=== PATIENT | male | born 1945 | race Caucasian/White ===

== ENCOUNTER 2016-08-04 13:03 | Day surgery (SDC) | payer MEDICARE ==
[~2016-08-04] VITALS: Ht 182.9 cm; Wt 105.0 kg
--- NOTE | 2016-08-04 08:38 | PCM.HPANE ---
Patient Data Surgeon Admitting Provider: Attending Provider:Fernando Cueva MD Primary Care Physician:Malcolm Rosario MD Other Provider:Cheri Hopperingham Anesthesia Reason for Visit Screening Ht/WT & BMI Body Mass Index Allergies Coded Allergies: Shellfish (Verified Allergy, Unknown, anaphylaxis--all shellfish, 08/04/16) Past Anesthesia History Anesthesia History: Denies:: Abnormal Airway, Anesthesia Reactions, Difficult Intubation Diabetes History Hx Diabetes?: No MRSA MRSA: No Medications Hypertension Medication: No Home Meds Incl Beta Jolene: Yes Date Beta Jolene Taken: Aug 03, 2016 Time Beta Jolene Taken: 18:00 Reported Medications Hydrocodone-Acetaminophen 5-325 mg 1 Each Tablet2 Tablet PO QID PRN For Pain Ref 0 05/26/16 [place]-3 Fatty Acids (Fish Oil)300 Mg [id number] Mg PO 05/26/16 Cholecalciferol (Vitamin D3) (Vitamin D3)5,000 Unit Capsule5,000 Unit PO DAILY 06/05/15 Ascorbic Acid (Vitamin C)1,500 Mg Tablet.er1,000 Mg PO DAILY 06/05/15 Aspirin 81 Mg Pffuiy48 Mg PO DAILY Ref 0 06/05/15 Ropinirole 4 Mg Tablet4 Mg PO TID 30 Days Ref 0 02/06/15 Carbidopa/Levodopa ODT 25-100 mg 1 Each Tab.rapdis2 Tab PO QID 02/06/15 Levothyroxine 137 Mcg [id number] Mcg PO DAILY 30 Days Ref 0 02/06/15 Metoprolol Tartrate 25 Mg Uaeyhv66 Mg PO BID 30 Days Ref 0 02/06/15 Calcium Carbonate (Calcium)600 Mg [id number] Mg PO 01/23/14 Clonazepam 0.5 Mg Tab0.5 Mg PO HS PRN For Anxiety 30 Days Ref 0 01/23/14 Discontinued Reported Medications Sildenafil Citrate (Sildenafil)20 Mg Yuoanw83 Mg PO DAILY PRN for sexual activity 05/26/16 Flaxseed (Flaxseed Oil)1,000 Mg Capsule1,000 Mg PO DAILY 06/05/15 Hyoscyamine SL 0.125 Mg Tab.subl0.125 Mg SL DAILY PRN For Congestion 02/06/15 History History of ENT Problems?: No Hx of Heart Problems?: No Cardiovascular History: Positive for:: Hypertension Denies:: Congestive Heart Failure Hx of Respiratory Problem?: Yes Respiratory History: Positive for:: Pneumonia (HX OF BRONCHITIS/PNEUMONIA W/ LUNG SCARRING ON XRAY) Denies:: Tuberculosis Hx Neurologic Problems?: Yes Neurological History: Positive for:: Parkinson's Disease (RECENTLY DIAGNOSED) Hx of GI Problems?: Yes Hx of Problems?: No Male Hx: Denies:: Prostate Problems Scrotal Mass Testicular Surgery Skin History: Denies:: History Skin Disorders? Pressure Ulcers Hx Musculoskeletal Problems?: Yes Musculoskeletal History: Positive for:: Joint Replacement (LT TKA) Musculoskeletal Trauma (FX ANKLE, DISLOCATED SHOULDER) Hx of Psycho/Social Problems?: No Hx Surgeries?: Yes (LT TKA,KNEE SCOPES X2,MCL RPR,ANKLE RPR,COLON SURGERY) Hx Any Other Health Problems?: Yes Other History: Positive for:: Thyroid Disease (HX OF GRAVE'S DISEASE RX W/ RADIOACTIVE IODINE) Denies:: Cancer Endocrine Disease Hospitalization History Blood Transfusions: Denies:: Blood Transfusions Hx Diabetes: No Hx Alcohol Use: YesHx Substance Use: NoHave You Smoked inLast 12 mo: No ( QUIT 20 YRS AGO) Stop/Bang Treated for Sleep Apnea?: No Do You Have a CPAP Machine?: No Risk Assessment Category Category 1A: Patient has history of documented sleep apnea, and HAS NOT received any narcotic, sedative or anesthesia administration during this stay. Category 1B: Patient has history of documented sleep apnea, and HAS received any narcotic , sedative or anesthesia administration during this stay Category 2: Patient has SUSPECTED Obstructive Sleep Apnea, and HAS received any narcotic , sedative or anesthesia administration during this stay. Category 3: Patient has SUSPECTED Obstructive Sleep Apnea and HAS NOT received narcotic, sedative or anesthesia administration during this stay. Category 4: Outpatient in Procedural Areas with known sleep apnea or who screen positive for High Risk via the STOP/BANG questionnaire. Exam Exam General Appearance: Alert, Oriented X3, Cooperative, No Acute Distress HEENT/AIRWAY: MP 2 Lungs: Clear to Auscultation, Normal Air Movement Heart: Exam Unremarkable, Regular Rate/Rhythm, No Murmurs/Rubs/Gallops Plan Impression Patient chart reviewed, patient interviewed and anesthestic plan with risks, benefits, and alternatives discussed, and informed consent obtained. ASA Physical Status: ASA2 Mod Systemic Disease Anesthetic Plan: MAC Bene/Risks/Altern/Consents: Yes HP Complete Prior to Induction: Yes Chris Bruce MD Aug 04, 2016 08:38
[~2016-08-04 13:03] MED LIST: ASCO1500 PO; ASPI-973 PO; CALC600T12 PO; CARB1TAB40 PO; CHOL5000 PO; FLAX100010 PO; HYDR-4003 PO; HYOS0.1218 SL; KLO5T PO; LEVO137T2 PO; Lactated Ringer's 1,000 ML IV ONE; METO25TA6 PO; OMEG300C3 PO; ROPI4TAB4 PO; SILD20TA14 PO
[2016-08-04] MEDS ORDERED: Ketamine 10 mg/mL 20 mL Inj ONE (13:04)
[2016-08-04 14:13] VITALS: BP 174/105; PULSE 82; RESP 14; O2SAT 97
[2016-08-04] MEDS ORDERED: Lactated Ringer's 1,000 ML IV SCH (14:24)
[2016-08-04] MEDS ORDERED: Ondansetron 2 mg/mL 2 mL Inj IVPUSH PRN (14:25)
[2016-08-04] MEDS ORDERED: MetoCLOpramide 5 mg/mL 2 mL Inj IVPUSH PRN (14:25)
[2016-08-04 15:00] VITALS: BP 142/79; PULSE 80; RESP 16; O2SAT 95
[2016-08-04 15:10] VITALS: BP 153/94; PULSE 84; RESP 16; O2SAT 97
--- NOTE | 2016-08-04 16:25 | ENDO ---
[address] [address] ENDOSCOPY PROCEDURE PATIENT: GABE CHENEY : 1945 MR#: [id number] ADMIT: 08/04/2016 JOB ID: [id number] PROCEDURE: Colonoscopy. INDICATIONS: Screening. Please see Dr. Bruce's anesthesia report for details regarding ASA classification, Mallampati score and medications. INSTRUMENT USED: TCF Zohra 180 AL. PREPARATION QUALITY: Poor. PROCEDURAL DETAILS: After informed consent was obtained, the patient was brought into the GI suite where he was placed on oxygen via nasal cannula and monitored with continuous pulse oximeter, telemetry, and blood pressure monitoring. A time-out was performed. Then, he was placed in the left lateral decubitus position and medications were administered for sedation. Digital rectal exam with palpation of the prostate was performed and was unremarkable. The colonoscope was then inserted into the rectum and advanced under direct visualization to the cecum which was identified by the presence of the ileocecal valve. I was unable to visualize the appendiceal orifice secondary to poor prep. The colonoscope was then withdrawn back from the cecum into the rectum and the mucosa was examined. As the prep was poor, there was limited evaluation of the colon mucosa. Additionally, the sigmoid colon was quite tortuous and redundant. As we initially attempted to advance the colonoscope from the rectum, we did by accident perform retroflexion in the sigmoid colon which to me indicated an enlarged and redundant sigmoid colon. IMPRESSION: 1. Redundant sigmoid colon. 2. Poor prep. RECOMMENDATIONS: Consider repeat colon cancer screening with CT colonography versus repeating colonoscopy with two-day colon prep. COMPLICATIONS: None. ESTIMATED BLOOD LOSS: Zero. MTDD
--- NOTE | 2016-08-08 07:32 | PCM.ANEP2 ---
Post Anesthesia Evaluation ASA/CMS Post Anesthesia VS in Patient's Normal Range?: Yes Resp Stable; Airway Patent?: Yes CV Function & Hydration Stable: Yes Mental Status Recovered?: Yes Pain control Satisfactory?: Yes N/V Control Satisfactory?: Yes Chris Bruce MD Aug 08, 2016 07:32
--- NOTE | 2016-08-08 07:32 | PCM.ANEP1 ---
Post Anesthesia Phase 1 PACU Phase 1 Assessment Anesthetic Administered: MAC Level of Alertness: Awake, talking GLORIA's with Equal Strength: Yes Pain: No Nausea or Vomiting: No Oxygen Delivery: Nasal Cannula Lungs: Clear to Auscultation, Normal Air Movement Dermatome Level: Full Sensation Chris Bruce MD Aug 08, 2016 07:32
[2016-08-18] MEDS ORDERED: AMN100C PO (11:54)
[2016-08-18] MEDS ORDERED: ATOR20TA PO (12:08)
[2016-08-18] MEDS ORDERED: KLO5T PO (12:33)
[2016-08-18] MEDS ORDERED: CARB1TAB14 PO (12:33)
[2016-08-18] MEDS ORDERED: SILD20TA14 PO (12:33)
[2016-08-18] MEDS ORDERED: FLAX100038 PO (12:33)
[2016-08-18] MEDS ORDERED: CALC-975 PO (12:33)
[2016-08-18] MEDS ORDERED: HYOS0.1216 PO (12:35)
[2016-08-23] MEDS ORDERED: HYDR-4003 PO (15:38)
== END 2016-08-04 23:59 | disposition home or self-care (01) ==
LOC: END 13:03
PROVIDERS: ATTEND Internal Medicine Gastroenterology
DX: Z12.11 Encounter for screening for malignant neoplasm of colon (principal); Q43.8 Other specified congenital malformations of intestine; G20 Parkinson's disease; I10 Essential (primary) hypertension; G47.30 Sleep apnea, unspecified; Z79.82 Long term (current) use of aspirin; Z96.89 Presence of other specified functional implants
CPT/HCPCS: G0121; J7120

== ENCOUNTER 2016-09-27 17:33 | Observation (INO) | payer MEDICARE ==
[~2016-09-27] VITALS: Ht 182.9 cm; Wt 102.2 kg
[2016-09-27] VITALS (7 sets, daily range): BP systolic 93–174; BP diastolic 61–94; PULSE 83–119; RESP 15–20; O2SAT 94–100
[~2016-09-27 17:33] MED LIST changes: -ASCO1500 PO; +ATOR20TA PO; -CALC600T12 PO; +CARB1TAB14 PO; -CARB1TAB40 PO; -FLAX100010 PO; -HYOS0.1218 SL; -Lactated Ringer's 1,000 ML IV ONE; -OMEG300C3 PO
--- NOTE | 2016-09-27 18:02 | ED.REPORT ---
HPI-General Illness Date of Service Sep 27, 2016 ED Provider: Dr. Keith Reynolds M.D. A 71 year old male with a medical history including hypertension, hypothyroid, sleep apnea, and Parkinson's disease s/p deep brain neurostimulator placement presents to the ED via EMS after a ground level fall at approximately 0900 this morning. The patient was too weak to get up and was found by his on the ground eight hours after his fall. He denies hitting his head or obtaining other injuries from the fall. The patient's family reports the patient has been getting progressively weaker and more confused over the past three weeks. The patient also reports visual and auditory hallucinations. He denies nausea, vomiting, fever, headache, dysuria, reduced urination, abdominal pain, chest pain, or other symptoms. The patient admits to using oral cannabinoid products for the first time recently. Nursing Notes Stated Complaint: WEAK, GROUND LEVEL FALL Chief Complaint: General Complaint Nursing Notes Reviewed: Yes Allergies: Coded Allergies: Shellfish (Verified Allergy, Unknown, anaphylaxis--all shellfish, 09/27/16) Scheduled Aspirin (Aspirin) 81 Mg Tablet 81 MG PO DAILY Atorvastatin (Lipitor) 20 Mg Tablet 20 MG PO DAILY Carbidopa/Levodopa 25-100 mg (Carbidopa/Levodopa 25-100 mg) 1 Each Tablet 1 TABLET PO QID Cholecalciferol (Vitamin D3) (Vitamin D3) 5,000 Unit Capsule 5,000 UNIT PO DAILY Clonazepam (Clonazepam) 0.5 Mg Tablet 0.5 MG PO HS Levothyroxine (Levothyroxine) 137 Mcg Tablet 137 MCG PO QAM Metoprolol Tartrate (Metoprolol Tartrate) 25 Mg Tablet 25 MG PO BID Ropinirole (Ropinirole) 1 Mg Tablet 1 MG PO TID Sildenafil Citrate (Sildenafil) 20 Mg Tablet 20 MG PO DAILY Scheduled PRN Hydrocodone-Acetaminophen 5-325 mg (Hydrocodone-Acetaminophen 5-325 mg) 1 Each Tablet 1 TABLET PO Q6H PRN PRN For Pain General Time Seen by MD: 18:01 Chief Complaint Weakness, Other (Ground Level Fall) Hx Obtained From: Patient Arrived By: Ambulance Sudden in Onset?: Yes Onset Occurred: 9 - 12 hours ago Symptom Duration: 5 - 8 hours Caused by: Fall on ground Context: Occurred at: Home injury Severity: Current: No pain currently Severity: Maximum: No pain Associated with: Denies: Fever, Headache, Nausea, Vomiting Pertinent Negative: Relieved by nothing Recent Healthcare: No recent doctor visit Past Medical History Past Medical History Parkinson's disease Hypertension Sleep apnea Hypothyroid Ataxia Arthritis Hx Ankle fracture Hx Dislocated shoulder Past Surgical History Deep brain neuro-stimulator placement for Parkinson's Interlaminar SHAYNE MCL repair Left TKA Smoking History Former Smoker Social History Other Social History: Good social support, Ambulatory Status Independent Review of Systems Full Review of Systems Constitutional: Denies: Fever Respiratory: Denies: Non-productive cough, Shortness of breath Cardiovascular: Denies: Chest pain GI: Denies: Abdominal pain, Nausea Male: Denies Dysuria, Denies Urination decreased Neurologic: Reports: Confusion, Weakness, Denies: Headache Psychiatric: Reports: Hallucinations, auditory, Hallucinations, visual Complete sys rev & neg: except as marked. Physical Exam Vital Signs Vital Signs Date Time Temp Pulse Resp B/P Pulse Ox O2 Delivery O2 Flow Rate FiO2 09/27/16 21:37 89 16 145/77 98 Room Air 09/27/16 21:01 102 15 106/70 98 09/27/16 20:17 119 20 93/61 97 Room Air 09/27/16 17:46 36.4 118 18 174/94 100 Room Air Initial VS: Reviewed (PAr) ENT: Conjunctiva normal, No scleral icterus Neck: Supple, Full range of motion Respiratory: Breath sounds normal, Clear to auscultation, No respiratory distress Skin: Warm, Dry, No cyanosis Psychiatric: Mood/affect normal, Behavior normal, Normal thought content General/Constitutional: Awake, Alert Distress / Hydration: Positive: Dehydration mild Parkinsonian Head / Eyes: Atraumatic, Normocephalic, EOMI 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 Cardiovascular: Regular rhythm, Heart sounds NL, No gallop, No murmurs Heart Rate / Rhythm: Positive: Tachycardia Abdomen: Soft, Non-tender Obese Neurologic: Oriented X3, Speech NL Focal Weakness: Negative: Lower extremity bilat, Upper extremity bilat Parkinsonian Interpretation & Diagnostics Lab Results Interpretation Result Diagram: 09/27/16 1820 09/27/16 1855 Test 09/27/16 18:20 09/27/16 18:55 White Blood Count 12.5th/mm3 (3.8-10.1) Red Blood Count 3.98mil/mm3 (4.40-5.80) Hemoglobin 12.5g/dL (13.8-17.2) Hematocrit 36.9% (41.0-50.0) Mean Corpuscular Volume 92.7fL (81-100) Mean Corpuscular Hemoglobin 31.4pg (27.0-35.0) Mean Corpuscular Hemoglobin Concent 33.9% (32.0-37.0) Red Cell Distribution Width 13.8% (12.3-15.4) Platelet Count 170bil/L (150-400) Neutrophils (%) (Auto) 80.2% (40-74) Lymphocytes (%) (Auto) 10.1% (14-46) Monocytes (%) (Auto) 9.3% (4-12) Eosinophils (%) (Auto) 0.1% (0-5) Basophils (%) (Auto) 0.1% (0-3) Prothrombin Time 11.4sec (8.1-12.5) Prothromb Time International Ratio 1.06ratio Activated Partial Thromboplast Time 23.1sec (22.8-33.0) Lactic Acid Level 2.1mmol/L (0.4-2.0) Sodium Level 137mEq/L (134-144) Potassium Level 4.2mEq/L (3.5-5.2) Chloride Level 99mEq/L (97-108) Carbon Dioxide Level 22mmol/L (18-29) Blood Urea Nitrogen 16mg/dL (8-27) Creatinine 0.73mg/dL (0.76-1.27) Estimat Glomerular Filtration Rate 113mL/min (>59) Glucose Level 126mg/dL (60-99) Calcium Level 9.5mg/dL (8.5-10.1) Magnesium Level 1.8mg/dL (1.6-2.6) Iron Level 61ug/dL (35-150) Total Iron Binding Capacity 306ug/dL (250-450) Percent Iron Saturation 20%sat (15-50) Unsaturated Iron Binding 244.5ug/dL Ferritin 504ng/mL (30-400) Total Bilirubin 1.1mg/dL (0.0-1.2) Aspartate Amino Transf (AST/SGOT) 34U/L (0-50) Alanine Aminotransferase (ALT/SGPT) 15U/L (0-44) Alkaline Phosphatase 74U/L (25-160) Total Creatine Kinase 725U/L (21-232) Creatine Kinase MB 19.1ng/mL (0.0-10.4) Creatine Kinase MB % 2.6% (0.0-5.0) Troponin T < 0.010ug/L (0.0-0.011) Pro-B-Type Natriuretic Peptide 212.9pg/mL (0-376) Total Protein 7.4g/dL (6.4-8.4) Albumin 4.6g/dL (3.4-5.0) Hold [place] Top Tube Received (Received) ECG Interpretation ECG Interpretation: Junctional tachycardia rate 120 LBBB Time: 19:25 Interpreted by: ED physician X-Ray Chest Interpretation Chest Xray Interpretation: IMPRESSION: No acute cardiopulmonary findings. Dictated by: Joycelyn Hay M.D. on 09/27/2016 at 19:08 View: Portable, 1 view Interpretation / Wet Read by: Interpret - Radiologist CT Head Interpretation IMPRESSION: 1. No acute intracranial findings. 2. Extensive findings likely associated with chronic microvascular ischemic changes. Dictated by: Joycelyn Hay M.D. on 09/27/2016 at 18:42 Study: Head CT no contrast Interpretation / Wet Read by: Interpret - ED physician Re-Eval/Medical Decision Med Decision/Clinical Course 71-year-old with progressive weakness and a background of severe parkinsonism, presents after a low level fall and being unable to get up off the floor for more than eight hours. He has mild rhabdomyolysis apparent. No other injury apparent. He is a persistent junctional tachycardia tonight. Complicating his weakness has been recent use of cannabinoids taken medicinally. His weakness really predates that, but that may have complicated his situation today. He is admitted now for IV hydration and diuresis for his rhabdo. PT evaluation for his gait instability. Time of Eval: 20:38 Patient Status: Condition improved Re-Evaluation/Progress Note: Discussed with patient and his family x-ray, CT, and lab results, diagnosis, and plan for admit. Patient agrees with plan for care and all questions were addressed. Consultation : Referral / Consult Name: Inge Mittal DO Consulted With: Hospitalist Call Returned at: 21:11 Change Room Attendant: Agrees with eval, Agrees with plan, Accepts admit Counseled Regarding: Diagnosis, Lab results, Need for admission Discharge & Departure Primary Impression: Fall from ground level Additional Impressions: Rhabdomyolysis Rhabdomyolysis type: non-traumatic Qualified Code: M62.82 - Rhabdomyolysis Junctional tachycardia Generalized weakness Parkinson's disease Disposition: ADMITTED TO HOSPITAL Discharge Condition All VS Reviewed: Yes Condition: Improved Referrals: Malcolm Rosario MD (PCP) Scribe Attestation Portions of this note were transcribed by Betty Carlton. I, Dr. Reynolds, personally performed the history, physical exam, and medical decision-making; I reviewed and confirmed the accuracy of the information in the transcribed note. Signed by: Astrid Danielle, 09/28/16, 00:15 copies to: Malcolm Rosario MD Risk Factors NIH Stroke Scale Level of Consciousness: Alert and responsive (0) Open/Close Eyes/Hand Clinical Dietitian: Performs both tasks (0) Horizontal EO Movements: None (0) Facial Palsy: Normal symmetry (0) Right Arm Motor Drift (10s): No drift 10 sec (0) Left Arm Motor Drift (10s): No drift 10 sec (0) Right Leg Motor Drift (5s): No drift 5 sec (0) Left Leg Motor Drift (5s): No drift 5 sec (0) Language Aphasia: No aphasia, normal (0) Dysarthria: No dysarthria, normal (0) NIHSS Score: 0 Time NIHSS Performed: 18:10 Date NIHSS Performed: Sep 27, 2016 Keith Reynolds MD Sep 27, 2016 18:02 BETTY CARLTON Sep 27, 2016 18:21
[2016-09-27 18:37] LABS: BASOPHILS % (AUTO) 0.1 % (0-3); EOSINOPHILS % (AUTO) 0.1 % (0-5); MONOCYTES % (AUTO) 9.3 % (4-12); Mean Corpuscular Hemoglobin 31.4 pg (27.0-35.0); Mean Corpuscular Volume 92.7 fL (81-100); NEUTROPHILS % (AUTO) 80.2 % (40-74); Platelet Count 170 bil/L (150-400)
--- NOTE | 2016-09-27 18:46 | DRSVH ---
PROCEDURE: CT BRAIN WITHOUT CONTRAST ([id number]) INDICATIONS: glf TECHNIQUE: Noncontrast 4.5 mm thick angled axial sections acquired from the foramen magnum to the vertex, with c oronal reformats. COMPARISON: None. FINDINGS: Image quality: Excellent. CSF spaces: Basal cisterns are patent. No extra-axial fluid collections. The ventricles are symmet sarah in size and shape. Brain: Left-sided basal ganglia neurostimulator is present with the tip in the left thalamic region. No intracranial bleeds or masses. There is cerebral marked volume loss for age, with resultant ventr icular and sulcal prominence. There are periventricular and deep white matter chronic small vessel i schemic changes. There is intracranial internal carotid artery atherosclerosis. Skull and face: Calvarium and visualized facial bones appear intact, without suspicious lesions. Sinuses: Visualized sinuses and mastoids are clear. IMPRESSION: 1. No acute intracranial findings. 2. Extensive findings likely associated with chronic microvascular ischemic changes. Dictated by: Joycelyn Hay M.D. on 09/27/2016 at 18:42 Approved by: Joycelyn Hay M.D. on 09/27/2016 at 18:44
[2016-09-27 19:03] LABS: INR 1.06 ratio
--- NOTE | 2016-09-27 19:12 | DRSVH ---
PROCEDURE: X-RAY CHEST ONE VIEW, PORTABLE ([id number]) INDICATIONS: glf, weakness TECHNIQUE: One view of the chest was acquired. COMPARISON: [facility], , CHEST 1VW (PORTABLE), 01/23/2014, 17:38. FINDINGS: Surgical changes and devices: Nerve stimulator is projected over the left pulmonary apex. Mildly enla rged. Lungs and pleura: No pleural effusions or pneumothorax. Lungs are clear. Mediastinum: Mediastinal contours appear normal. Heart size is normal. Bones and chest wall: No suspicious bony lesions. Overlying soft tissues appear unremarkable. IMPRESSION: No acute cardiopulmonary findings. Dictated by: Joycelyn Hay M.D. on 09/27/2016 at 19:08 Approved by: Joycelyn Hay M.D. on 09/27/2016 at 19:10
[2016-09-27 19:37] LABS: Creatine Kinase 725 U/L (21-232); Magnesium 1.8 mg/dL (1.6-2.6)
[2016-09-27 19:51] LABS: TROPONIN T < 0.010 ug/L (0.0-0.011)
[2016-09-27] MEDS ORDERED: 0.9% Sodium Chloride 1,000 ML IV ONE (20:10)
[2016-09-27] MEDS ORDERED: Alum-Mag Hydrox-Simeth 30 mL Suspension PO PRN (21:15)
[2016-09-27] MEDS ORDERED: Polyethylene Glycol (PEG) 17 Gm Powder PO PRN (21:15)
[2016-09-27] MEDS ORDERED: Ondansetron 2 mg/mL 2 mL Inj IVPUSH PRN (21:15)
[2016-09-27] MEDS ORDERED: ROPI1TAB3 PO (21:44)
--- NOTE | 2016-09-27 23:00 | NUR ---
admit note pt to floor needing slider board to move to bed. pt denies any "real pain". and daughter in room, tele placed and shows SR, pts right knee with an abrasion from fall at home and swollen, x-ray ordered, NS at 100cc/hr, pt tolerating some ice cream and water, appears more awake according to the family, pt with intermittent hallucinations ([employer]), pt on RA, med rec completed by , flu vaccine in fall. orientated pt to call light, room and bed. allergy band in place.
--- NOTE | 2016-09-27 23:37 | PCM.HPMED ---
Subjective Date of Service Sep 27, 2016 Primary Provider: Admitting Physician: Primary Care Physician: Malcolm Rosario MD Attending Physician: Chief Complaint: Ground-level fall, down for extended period of time History of Present Illness: Dr. Malcolm Rosario is the PCP Christoph Winston is a 71 year old male with a medical history including Parkinson's s/p deep brain neurostimulator placement, hypertension, hypothyroid and sleep apnea who presents to the ED via EMS after a ground level fall around 0900 this morning. The patient was too weak to get up and was found by his on the ground at 5 PM (about eight hours after his reported time of fall) and reportedly naked (patient reports he had just come out of the shower). Please note, reports that he was last seen normal at 8 AM. He denies injuries from the fall, but notes that he may have hit his knee on the carpet. The patient's family reports the patient has been getting progressively weaker over the last many months, but worse over the last month (they report that his ropinirole dose was recently decreased to 1 mg daily, and also that his sildenafil medication was either added/dose change). He had a previous fall just recently on 09/08/16 at home, but no significant workup as noted for that, and the situation surrounding that fall is also somewhat in question is it was not witnessed. Otherwise, his denies any recent falls, but does note a remote fall sometime ago of similar circumstances. Otherwise no changes to his medications. They report that he has not had much to eat today as he was on the ground for most of the day. They otherwise deny any issues with appetite and by mouth intake. He has not taken any of his medications today except for his carbidopa levodopa. The patient also reports visual and auditory hallucinations (some of the outpatient notes mention decreasing his dose of clonazepam), but this is been going on for some time now. He reports mild somewhat daily headache for an undisclosed duration of time (at this point he had taken one of his evening medications administered by his in the room, and was becoming less coherent ), and both patient and family believe that this is related to his neck tightness associated with Parkinson's. He reports increased urine output, but denies burning or abdominal pain. Family reports that he has been having more trouble swallowing large pills, but denies any coughing or choking with food or water. He reports feeling weak all over at this time. He reports testicular pain for the last "months" that has not changed. He denies nausea, vomiting, fever/chills, abdominal pain, constipation, diarrhea, chest pain, shortness of breath. In the ER, CT head was negative as was the chest x-ray. In EKG showed a junctional tachycardia (this has resolved (monitor now shows sinus rhythm with rate in the 80s)). Labs indicated a mildly elevated CK for which she received a liter of fluid. Patient is admitted under inpatient status with expected length of stay greater than 2 midnights due to severity of presenting symptoms, risk of adverse event, and complexity of treatment plan. Review of Systems: Comprehensive review of systems conducted and was negative except for the pertinent positives listed in history of present illness above. Allergies Coded Allergies: Shellfish (Verified Allergy, Unknown, anaphylaxis--all shellfish, 09/27/16) Home Medications From [employer]. incomplete: Christoph Winston. [id number] 1945 09/15/2016 10:50 AM 08/03 Aspir-81 81 mg tablet,delayed release take 1 tablet by oral route every day atorvastatin 20 mg tablet take 1 tablet by oral route every day Calcium 600 + D(3) 600 mg calcium-200 unit capsule carbidopa ER 25 mg-levodopa 100 mg tablet,extended release take 2 tablets 4 times a day. clonazepam 0.5 mg tablet take 1 tablet (0.5MG) by oral route every bedtime hydrocodone 5 mg-acetaminophen 325 mg tablet take 1 tablet by oral route every 6 hours as needed for pain levothyroxine 137 mcg tablet take 1 tablet by oral route every day metoprolol tartrate 25 mg tablet take 1 tablet by oral route 2 times every day ropinirole 4 mg tablet TAKE ONE half TABLET BY MOUTH 3 TIMES DAILY Vitamin C ER 1,000 mg tablet,extended release Vitamin D3 5,000 unit tablet 1 tablet by mouth daily PMH Multivessel CAD History of SVT on medical therapy Hypertension Hypothyroidism (history of Graves' disease) Parkinson's status post neurostimulator-history of falls (outpatient record indicates a fall on 09/08/16) * Associated dizziness, falls, hallucinations, postural hypotension, gait abnormality, unsteadiness Sleep apnea History of sigmoid volvulus Ventral hernia Arthritis Lumbar spine stenosis without neurogenic claudication (L4-5 grade 1 spondylolisthesis) Hx Ankle fracture Hx Dislocated shoulder left Past Surgical History Deep brain neuro-stimulator placement for Parkinson's 2015 Interlaminar SHAYNE MCL repair Left TKA Sigmoid volvulus resection in 2010 Left shoulder arthroscopy Family History Father in a fire. Mother had multiple cardiac surgeries (CABG and valve surgeries) Maternal uncle had significant heart disease A grandfather had throat cancer (no history of tobacco use) A brother has throat cancer (tobacco history) Social History Hx Alcohol Use: Yes (daily use. Family reports that he will have 2 alcoholic beverages (usually in the form of hard lemonade) daily) Hx Substance Use: No Hx Tobacco Use: Yes (reports quitting in 1976 after which he uses chewing tobacco for a time, but reports quitting in the mid ) Smoking Status: Former Smoker Living Arrangement: with Family (lives with his locally) Additional Information , father of 3 children. Live for a time in [place], but otherwise lifelong [place]. Exam Vital Signs Vital Sign - Last Date Time Temp Pulse Resp B/P Pulse Ox O2 Delivery O2 Flow Rate FiO2 09/27/16 21:01 102 15 106/70 98 09/27/16 20:17 Room Air 09/27/16 17:46 36.4 Exam General: Obese gentleman, somnolent and opens eyes easily to verbal, somewhat confused, but Oriented X3, Cooperative, No Acute Distress. Lying in the ER gurney. Head: Remote postsurgical changes of the left parietal portion of the scalp and skull consistent with his history of deep brain stimulator placement, atraumatic. External ears normal. Eyes: PERRLA, EOMI. Anicteric sclerae. Conjunctiva are not injected Mouth: Mouth Normal, Mucous Membranes Moist/Bowdens Neck: Neck supple with full range of motion. No Thyromegaly. Chest & Lungs: Clear to auscultation bilaterally with no crackles, wheezes, or rhonchi. Normal respiratory effort without use of accessory muscles Cardiovascular: Regular Rate/Rhythm (sinus on the monitor), Normal S1, Normal S2, No Murmurs/Rubs/Gallops. Radial and posterior tibial pulses are 2+ bilaterally. Abdomen: Minimally tender in RUQ and LUQ to deep palpation, Non-distended, No masses, Normoactive bowel tones, Soft. There is a large, jagged remotes postsurgical scar of the anterior inferior portion of the abdomen consistent with his history of volvulus resection. There is a large easily reducible, nontender hernia of the anterior abdomen on the R. : Normal penis (not circumcised). Testicles are small and tender (patient reports they are not more tender than usual during the last "months") R>L without tenderness of the vas def b/l. No overlying erythema. No dir/indir indication of inguinal hernia (nontender eval). Cremaster reflex appears intact (patient is supine, so difficult to assess) b/l. Musculoskeletal: Tender to palpation over the left anterior knee and along the joint line without erythema or visible swelling. Quite tender to palpation over the right anterior knee and along the joint line with some mild medial erythema, and visible appearance larger than the left without appreciable effusion. Range of motion in this knee (the right) is reduced secondary to pain. Extremities: No cyanosis/clubbing/edema bilat Neurological: Grossly Neurologically Intact (but is somewhat confused making statements such as regards pajamas, and weakness in his chest, but family reports that they just gave him his nighttime dose of medication which usually makes him quite sleepy), Cranial Nerves 2-12 Intact, Normal Speech (no slurring appreciated), he will to lift bilateral legs off the gurney, but reports pain in his right knee when he lifts his right leg., Gait gait was not assessed at this time Psych: Normal mood and affect. Thought process and content are somewhat destroyed today and tangential. Please note that the patient was not reporting any visual or auditory hallucinations at this time. Lab and Diagnostics Labs Laboratory Tests 72 Hours Test 09/27/16 18:20 09/27/16 18:55 White Blood Count 12.5th/mm3 (3.8-10.1) Red Blood Count 3.98mil/mm3 (4.40-5.80) Hemoglobin 12.5g/dL (13.8-17.2) Hematocrit 36.9% (41.0-50.0) Mean Corpuscular Volume 92.7fL (81-100) Mean Corpuscular Hemoglobin 31.4pg (27.0-35.0) Mean Corpuscular Hemoglobin Concent 33.9% (32.0-37.0) Red Cell Distribution Width 13.8% (12.3-15.4) Platelet Count 170bil/L (150-400) Neutrophils (%) (Auto) 80.2% (40-74) Lymphocytes (%) (Auto) 10.1% (14-46) Monocytes (%) (Auto) 9.3% (4-12) Eosinophils (%) (Auto) 0.1% (0-5) Basophils (%) (Auto) 0.1% (0-3) Prothrombin Time 11.4sec (8.1-12.5) Prothromb Time International Ratio 1.06ratio Activated Partial Thromboplast Time 23.1sec (22.8-33.0) Hold [place] Top Tube Received (Received) Received (Received) Sodium Level 137mEq/L (134-144) Potassium Level 4.2mEq/L (3.5-5.2) Chloride Level 99mEq/L (97-108) Carbon Dioxide Level 22mmol/L (18-29) Blood Urea Nitrogen 16mg/dL (8-27) Creatinine 0.73mg/dL (0.76-1.27) Estimat Glomerular Filtration Rate 113mL/min (>59) Glucose Level 126mg/dL (60-99) Calcium Level 9.5mg/dL (8.5-10.1) Magnesium Level 1.8mg/dL (1.6-2.6) Total Bilirubin 1.1mg/dL (0.0-1.2) Aspartate Amino Transf (AST/SGOT) 34U/L (0-50) Alanine Aminotransferase (ALT/SGPT) 15U/L (0-44) Alkaline Phosphatase 74U/L (25-160) Total Creatine Kinase 725U/L (21-232) Creatine Kinase MB 19.1ng/mL (0.0-10.4) Creatine Kinase MB % 2.6% (0.0-5.0) Troponin T < 0.010ug/L (0.0-0.011) Pro-B-Type Natriuretic Peptide 212.9pg/mL (0-376) Total Protein 7.4g/dL (6.4-8.4) Albumin 4.6g/dL (3.4-5.0) Result Diagram: 09/27/16181909/27/16 1593 X-Rays, CTs and MRIs Date of Service: 09/27/161812 PROCEDURE: X-RAY CHEST ONE VIEW, PORTABLE ([id number]) IMPRESSION: No acute cardiopulmonary findings. Dictated by: Joycelyn Hay M.D. on 09/27/2016 at 19:08 Date of Service: 09/27/161812 PROCEDURE: CT BRAIN WITHOUT CONTRAST ([id number]) IMPRESSION: 1. No acute intracranial findings. 2. Extensive findings likely associated with chronic microvascular ischemic changes. Dictated by: Joycelyn Hay M.D. on 09/27/2016 at 18:42 12-lead ECG EKG seems demonstrated a junctional tachycardia with a rate of 120, what appears to be a borderline left bundle branch block, but otherwise normal intervals, normal axis, and what appears to be <1mm ST depression in V2 through V6, 1 and 2. However no other ST-T wave changes suggestive of acute ischemia. Please note comparison with outpatient ECG on 02/03/15 demonstrates sinus rhythm Cardiac Echo Impressions Most recent echo was 2013 with an EF of 55-60% Assessment & Plan Christoph Winston is a 71 year old male with a medical history including Parkinson's s/p deep brain neurostimulator placement, hypertension, hypothyroid and sleep apnea who presents to the ED via EMS after a ground level fall around 0900 this morning. # Ground-level fall at home, acute with report of chronic progressive weakness. Present on admission -Likely multifactorial given the patient's underlying Parkinson's (potential progression), lumbar spine stenosis, medication side effects, with potential contributing factors from postural hypotension perhaps exacerbated by just coming out of the shower -Physical therapy assessment -We will continue his Parkinson's medications with consideration for holding specific medication such as clonazepam -Activity: Up with assist -Heart healthy diet -We will check a B12 and folate, and also an A1c (patient's daughter reports that she has a poor diet) #Elevated CK with concern for rhabdomyolysis given his extended time on the floor, acute. Present on admission -Rather mild elevation of CK given the amount of time he was on the floor -We await the UA -IV fluid administration -Telemetry monitoring for arrhythmias -Continue to monitor labs # Superficial findings consistent with trauma to the right knee, acute. Present on admission -Concerning for contusion, patellar fracture, perhaps some possibility of cellulitis (given the small bump in WBC) -XR of right knee to assess for bony abnormality -Conservative pain management given are goal of avoiding further confusion and/ or iatrogenic gait instability -Continue to monitor labs for further indicators of infection -Consideration for getting ortho involved # Junctional tachycardia, acute in the ER, now resolved. Present at time of presentation, but not admission -Potentially related to mild rhabdomyolysis -Telemetry monitoring. -Continue to monitor labs for any electrolyte abnormalities # Leukocytosis with 80% neutrophils, acute. Present on admission -Further monitoring and management as above # Anemia, normocytic, and of unknown chronicity. Present on admission -Potentially related to his initial fall and being found down, contusion to the right knee, vitamin deficiency -Continue to monitor lab -consideration for iron panel, B12 and folate # Hyperglycemia (in setting of report the patient has not had anything to eat all day), unknown chronicity. Present on admission -We will check an A1c to assess for potential diabetes #right groin pain, acute on chronic -pt concerned about worsening "hernia pain: -exam as above -if pain persists would consider imaging / hip imaging (s/p GLF) Chronic conditions: Multivessel CAD-continue aspirin, atorvastatin, metoprolol History of SVT on medical therapy-continue metoprolol Hypertension-continue metoprolol Hypothyroidism (history of Graves' disease)-continue levothyroxine Parkinson's status post neurostimulator-history of falls-continue carbidopa- levodopa, ropinirole, but will hold sildenafil for now. Will not administer his that time clonazepam tonight, but consider continuing. Sleep apnea Arthritis-we will make Tylenol available Testicular pain-(see exam above, and negative UA) consider testicular US in the morning or as outpatient Large ventral hernia-easily reducible without increased tenderness. Await lactic acid, but no clear indication for further diagnostic evaluation at this time. PRN MEDICATIONS - Acetaminophen as needed for mild pain/fever/headache - Bowel regimen as needed - Antiemetic as needed Patient is admitted under inpatient status with expected length of stay greater than 2 midnights due to severity of presenting symptoms, risk of adverse event, and complexity of treatment plan. Pain Evaluation: Adequate Pain Control GI Prophylaxis: Not indicated VTE Prophylaxis: Sub-Q Heparin (Unfractionated) Resuscitation Status: CPR: Attempt Resuscitation (Does not want long-term support) Attending Statement The patient was seen and examined together with house staff on 09/27/2016 and I agree with the history, exam and plan as outlined in the note above. copies to: Malcolm Rosario MD, Collin T DO Sep 27, 2016 21:41 Ineg Mittal DO Sep 28, 2016 05:05
[2016-09-27] MEDS: 0.9% Sodium Chloride 1,000 ML IV SCH (23:39)
[2016-09-27 23:49] LABS: APPEARANCE,URINE CLEAR (CLEAR,HAZY); COLOR,URINE DARK YELLOW (YELLOW); OCCULT BLOOD,URINE NEGATIVE (NEGATIVE)
[2016-09-28 00:10] LABS: Unsaturated Iron Binding 244.5 ug/dL
[2016-09-28] MEDS: Heparin 5,000 Unit/mL Inj SUBQ SCH ×3 (00:40→16:30)
[2016-09-28 04:08] VITALS: BP 135/77; PULSE 59; RESP 18; O2SAT 96
[2016-09-28 04:25] LABS: BASOPHILS % (AUTO) 0.3 % (0-3); EOSINOPHILS % (AUTO) 1.3 % (0-5); MONOCYTES % (AUTO) 11.1 % (4-12); Mean Corpuscular Hemoglobin 31.3 pg (27.0-35.0); Mean Corpuscular Volume 93.5 fL (81-100); NEUTROPHILS % (AUTO) 63.7 % (40-74); Platelet Count 146 bil/L (150-400)
[2016-09-28 04:51] LABS: Magnesium 1.8 mg/dL (1.6-2.6); Phosphorus 3.2 mg/dL (2.5-4.9)
[2016-09-28 08:41] VITALS: BP 119/68; PULSE 56; RESP 16; O2SAT 96
--- NOTE | 2016-09-28 08:51 | NUR ---
0830 Metoprolol 25 mg PO withheld d/t HR 56
[2016-09-28] MEDS: 0.9% Sodium Chloride 1,000 ML IV SCH (08:59)
--- NOTE | 2016-09-28 09:07 | DRSVH ---
PROCEDURE: X-RAY RIGHT KNEE, THREE VIEWS ([id number]) INDICATIONS: Right knee pain, ?swelling, skin abrasion TECHNIQUE: 3 views of the knee were acquired. COMPARISON: [facility], , KNEE 1 OR 2VW (RT), 08/23/2011, 13:37. FINDINGS: Bones: Stable appearance of right knee arthroplasty. Soft tissues: Trace joint effusion. No suspicious soft tissue calcifications. Heterotopic ossificat ion seen adjacent to the medial lateral aspects of the distal femoral condyles. 2 cm posterior calci fication in the popliteal fossa unchanged. IMPRESSION: Stable appearance of right knee arthroplasty. Dictated by: Jose G ANDRES Interpreted: Shaina Higgins MD on 09/28/2016 at 9:05 Transcribed by: CLIFF on 09/28/2016 at 9:06 Approved by: Shaina Higgins MD, PhD on 09/28/2016 at 17:15
--- NOTE | 2016-09-28 09:55 | NUR ---
Social Work-initial assessment: Data:See initial assessment. Pt is a 71 y/o male who was admitted on 09/27/16 for Fall per H&P. Pt's insurance is [employer] and PCP Is Malcolm Rosario MD. EMR reviewed. JESUS met with pt and Lucia [phone] at bedside to discuss discharge planning, SW role explained. Pt is alert and oriented x3. Pt resides at home with his where he remains independent with ADLs. Pt uses a fww or cane at baseline and does drive occasionally. Pt has no HH or SNF history. Pt has no longterm care insurance or VA benefits. SW discussed DPOA/ advanced directive, pt's states they have completed this and she will bring it in later today. Pt currently does outpt PT, SW did discuss HH services with pt and . PT evaluation is pending. SW to follow up post PT to further discuss needs. Pt's to provide transport home. SW provided phone number and plan on white board in room. SW will continue to follow. Assessment:Pt who uses fww at baseline. Plan: Pt to discharge home when medically stable via POV.PT evaluation is pending. SW to follow up post PT for needs. SW will continue to follow. DIANA Deluca Addendum: 09/28/16 at 1003 by DAYA HO SS Amended: Links added.
[2016-09-28 11:08] VITALS: PULSE 68
[2016-09-28 12:07] VITALS: BP 114/69; PULSE 57; RESP 18; O2SAT 97
--- NOTE | 2016-09-28 12:52 | NUR ---
Case Management: NARVAEZ and Medicare Part D delivered and explained to pt. Signed original placed in chart. Copy left at bedside. Anju Zelaya RN
--- NOTE | 2016-09-28 15:55 | DRSVH ---
PROCEDURE: US TESTICULAR SONOGRAM WITH DOPPLER INDICATIONS: pain left testicle TECHNIQUE: Real-time scanning was performed of the scrotum and testicles, with image documentation. Color and p ulse Doppler interrogation was performed of both testicles. COMPARISON: None. FINDINGS: Right: Testicle is normal in size at 3.3 x 1.9 x 2.7 cm, and homogenous in echotexture. Epididymis is normal in overall size and morphology. Subcentimeter epididymal cyst No hydrocele or varicoceles . Overlying scrotal skin is normal in thickness. Left: Testicle is normal in size at 3.2 x 1.5 x 2.2 cm, and mildly heterogeneous in echotexture. Ep ididymis is normal in overall size and morphology. Subcentimeter epididymal cyst No hydrocele or va ricoceles. Overlying scrotal skin is normal in thickness. Doppler: Color and pulse Doppler demonstrate normal and symmetric arterial flow in both testicles. IMPRESSION: 1. Subcentimeter bilateral epididymal cysts. 2. Mild heterogeneity of the left testicle likely postinflammatory. Recommend followup ultrasound in 3 months to assess for temporal stability. Dictated by: Jose G Zamora [facility] Interpreted: Shaina Higgins MD on 09/28/2016 at 15:54 Transcribed by: CLIFF on 09/28/2016 at 15:54 Approved by: Shaina Higgins MD, PhD on 09/28/2016 at 17:20
--- NOTE | 2016-09-28 16:49 | PCM.DIMED ---
Discharge Instructions Date of Service Sep 28, 2016 Dates of Hospitalization Sep 27, 2016 at 21:51 Discharge Diagnosis Discharge Diagnosis 1.Possible syncope 2. Sinus bradycardia 3. Knee contusions 4. Parkinson's disease 5. Hypertension 6. MARIAN 7. Hypothyroidism 8. MARIAN Diet Heart Healthy Activity Limited until seen by PCP Call your provider Shortness of breath, Chest pain, Other (syncope) Patient Instructions Follow-up Provider: Malcolm Rosario MD Follow-up with PCP in: 2 weeks Malcolm Rosario MD Sep 28, 2016 16:49
--- NOTE | 2016-09-28 17:11 | PCM.DC.MED ---
Discharge Summary Date of Service Sep 28, 2016 Dates of Hospitalization Date of Hospital Admission Sep 27, 2016 at 21:51 Date of Discharge: Sep 28, 2016 Providers: Admitting Physician: Inge Mittal DO Primary Care Physician: Malcolm Rosario MD Attending Physician: Inge Mittal DO Diagnosis at Time of Discharge Diagnosis at Time of Discharge 1.Possible syncope 2. Sinus bradycardia 3. Knee contusions 4. Parkinson's disease 5. Hypertension 6. MARIAN 7. Hypothyroidism 8. MARIAN Consultations None Procedures XRay, CTs & MRIs Date of Service: 09/27/161812 PROCEDURE: X-RAY CHEST ONE VIEW, PORTABLE ([id number]) IMPRESSION: No acute cardiopulmonary findings. Dictated by: Joycelyn Hay M.D. on 09/27/2016 at 19:08 Date of Service: 09/27/161812 PROCEDURE: CT BRAIN WITHOUT CONTRAST ([id number]) IMPRESSION: 1. No acute intracranial findings. 2. Extensive findings likely associated with chronic microvascular ischemic changes. Dictated by: Joycelyn Hay M.D. on 09/27/2016 at 18:42 ECG 12 Lead EKG seems demonstrated a junctional tachycardia with a rate of 120, what appears to be a borderline left bundle branch block, but otherwise normal intervals, normal axis, and what appears to be <1mm ST depression in V2 through V6, 1 and 2. However no other ST-T wave changes suggestive of acute ischemia. Please note comparison with outpatient ECG on 02/03/15 demonstrates sinus rhythm Cardiac Echo Impression Most recent echo was 2013 with an EF of 55-60% Invasive Procedures None Brief History Dr. Malcolm Rosario is the PCP Christoph Winston is a 71 year old male with a medical history including Parkinson's s/p deep brain neurostimulator placement, hypertension, hypothyroid and sleep apnea who presents to the ED via EMS after a ground level fall around 0900 this morning. The patient was too weak to get up and was found by his on the ground at 5 PM (about eight hours after his reported time of fall) and reportedly naked (patient reports he had just come out of the shower). Please note, reports that he was last seen normal at 8 AM. He denies injuries from the fall, but notes that he may have hit his knee on the carpet. The patient's family reports the patient has been getting progressively weaker over the last many months, but worse over the last month (they report that his ropinirole dose was recently decreased to 1 mg daily, and also that his sildenafil medication was either added/dose change). He had a previous fall just recently on 09/08/16 at home, but no significant workup as noted for that, and the situation surrounding that fall is also somewhat in question is it was not witnessed. Otherwise, his denies any recent falls, but does note a remote fall sometime ago of similar circumstances. Otherwise no changes to his medications. They report that he has not had much to eat today as he was on the ground for most of the day. They otherwise deny any issues with appetite and by mouth intake. He has not taken any of his medications today except for his carbidopa levodopa. The patient also reports visual and auditory hallucinations (some of the outpatient notes mention decreasing his dose of clonazepam), but this is been going on for some time now. He reports mild somewhat daily headache for an undisclosed duration of time (at this point he had taken one of his evening medications administered by his in the room, and was becoming less coherent ), and both patient and family believe that this is related to his neck tightness associated with Parkinson's. He reports increased urine output, but denies burning or abdominal pain. Family reports that he has been having more trouble swallowing large pills, but denies any coughing or choking with food or water. He reports feeling weak all over at this time. He reports testicular pain for the last "months" that has not changed. He denies nausea, vomiting, fever/chills, abdominal pain, constipation, diarrhea, chest pain, shortness of breath. In the ER, CT head was negative as was the chest x-ray. In EKG showed a junctional tachycardia (this has resolved (monitor now shows sinus rhythm with rate in the 80s)). Labs indicated a mildly elevated CK for which she received a liter of fluid. Patient is admitted under inpatient status with expected length of stay greater than 2 midnights due to severity of presenting symptoms, risk of adverse event, and complexity of treatment plan. Hospital Course Christoph Winston is a 71 year old male with a medical history including Parkinson's s/p deep brain neurostimulator placement, hypertension, hypothyroid and sleep apnea who presents to the ED via EMS after a ground level fall around 0900 this morning. # Ground-level fall at home, acute with report of chronic progressive weakness. Present on admission -Likely multifactorial given the patient's underlying Parkinson's (potential progression), lumbar spine stenosis, medication side effects, with potential contributing factors from postural hypotension perhaps exacerbated by just coming out of the shower -Physical therapy assessment -We will continue his Parkinson's medications with consideration for holding specific medication such as clonazepam -Activity: Up with assist -Heart healthy diet -We will check a B12 and folate, and also an A1c (patient's daughter reports that she has a poor diet) #Elevated CK with concern for rhabdomyolysis given his extended time on the floor, acute. Present on admission -Rather mild elevation of CK given the amount of time he was on the floor -We await the UA -IV fluid administration -Telemetry monitoring for arrhythmias -Continue to monitor labs # Superficial findings consistent with trauma to the right knee, acute. Present on admission -Concerning for contusion, patellar fracture, perhaps some possibility of cellulitis (given the small bump in WBC) -XR of right knee to assess for bony abnormality -Conservative pain management given are goal of avoiding further confusion and/ or iatrogenic gait instability -Continue to monitor labs for further indicators of infection -Consideration for getting ortho involved # Junctional tachycardia, acute in the ER, now resolved. Present at time of presentation, but not admission -Potentially related to mild rhabdomyolysis -Telemetry monitoring. -Continue to monitor labs for any electrolyte abnormalities # Leukocytosis with 80% neutrophils, acute. Present on admission -Further monitoring and management as above # Anemia, normocytic, and of unknown chronicity. Present on admission -Potentially related to his initial fall and being found down, contusion to the right knee, vitamin deficiency -Continue to monitor lab -consideration for iron panel, B12 and folate # Hyperglycemia (in setting of report the patient has not had anything to eat all day), unknown chronicity. Present on admission -We will check an A1c to assess for potential diabetes #right groin pain, acute on chronic -pt concerned about worsening "hernia pain: -exam as above -if pain persists would consider imaging / hip imaging (s/p GLF) Chronic conditions: Multivessel CAD-continue aspirin, atorvastatin, metoprolol History of SVT on medical therapy-continue metoprolol Hypertension-continue metoprolol Hypothyroidism (history of Graves' disease)-continue levothyroxine Parkinson's status post neurostimulator-history of falls-continue carbidopa- levodopa, ropinirole, but will hold sildenafil for now. Will not administer his that time clonazepam tonight, but consider continuing. Sleep apnea Arthritis-we will make Tylenol available Testicular pain-(see exam above, and negative UA) consider testicular US in the morning or as outpatient Large ventral hernia-easily reducible without increased tenderness. Await lactic acid, but no clear indication for further diagnostic evaluation at this time. PRN MEDICATIONS - Acetaminophen as needed for mild pain/fever/headache - Bowel regimen as needed - Antiemetic as needed Patient is admitted under inpatient status with expected length of stay greater than 2 midnights due to severity of presenting symptoms, risk of adverse event, and complexity of treatment plan. Hospital course: Patient was admitted for a probable syncopal episode. There is reported junctional rhythm at time of admit. He is on metoprolol for hypertension and paroxysmal supraventricular tachycardia. The patient was fluid resuscitated and observed. He had sinus bradycardia only been no evidence of arrhythmia or sinus pause. The patient also noted left testicle pain for the last several weeks. His testicle was tender on examination. There are no masses noted. Ultrasound was obtained revealing nonspecific possible inflammatory changes of the left testicle but no evidence of torsion. This information was shared with the patient and family. He had a mild abrasion of the right knee as well. The situation was reviewed with the family and patient. Ultimately felt that he would be stable for discharge home and that this may have been a syncopal episode related to bradycardia from metoprolol. This is in the context of a history of repeated falls secondary to progressive or concerns. The difference being that he did not recall this fall suggesting possible syncope. Exam Vital Signs (Last) Date Time Temp Pulse Resp B/P Pulse Ox O2 Delivery O2 Flow Rate FiO2 09/28/16 12:07 36.8 57 18 114/69 97 Room Air Exam Alert and oriented times three. Fluent speech Lungs clear and with normal effort heart regular Abdomen soft NT No edema Test 09/27/16 18:20 09/27/16 18:55 09/27/16 23:05 09/27/16 23:45 Prothrombin Time 11.4sec (8.1-12.5) Prothromb Time International Ratio 1.06ratio Activated Partial Thromboplast Time 23.1sec (22.8-33.0) Iron Level 61ug/dL (35-150) Total Iron Binding Capacity 306ug/dL (250-450) Percent Iron Saturation 20%sat (15-50) Unsaturated Iron Binding 244.5ug/dL Ferritin 504ng/mL (30-400) Total Bilirubin 1.1mg/dL (0.0-1.2) Aspartate Amino Transf (AST/SGOT) 34U/L (0-50) Alanine Aminotransferase (ALT/SGPT) 15U/L (0-44) Alkaline Phosphatase 74U/L (25-160) Creatine Kinase MB 19.1ng/mL (0.0-10.4) Creatine Kinase MB % 2.6% (0.0-5.0) Troponin T < 0.010ug/L (0.0-0.011) Pro-B-Type Natriuretic Peptide 212.9pg/mL (0-376) Total Protein 7.4g/dL (6.4-8.4) Albumin 4.6g/dL (3.4-5.0) Hold [place] Top Tube Received (Received) Urine Color Dark yellow (YELLOW) Urine Appearance Clear (CLEAR,HAZY) Urine pH 6.0 (5.0-8.0) Urine Specific [place] 1.020 (1.003-1.035) Urine Protein Negativemg/dL (NEG,TRACE) Urine Glucose (UA) Negativemg/dL (NEGATIVE) Urine Ketones Negativemg/dL (NEGATIVE) Urine Occult Blood Negative (NEGATIVE) Urine Nitrite Negative (NEGATIVE) Urine Bilirubin Negative (NEGATIVE) Urine Urobilinogen 1.0mg/dL (NORMAL) Urine Leukocyte Esterase Negative (NEGATIVE) Urine RBC 0-2/hpf (0-2) Urine WBC 0-5/hpf (0-5) Urine Epithelial Cells Occasional/hpf (NONE-MOD) Urine Crystals None seen (NONE SEEN) Urine Bacteria Few/hpf (NONE-FEW) Urine Hyaline Casts Rare/lpf (NONE) Urine Granular Casts None seen (NONE SEEN) Urine Waxy Casts None seen (NONE SEEN) Urine Red Blood Cell Casts None seen (NONE SEEN) Urine White Blood Cell Casts None seen (NONE SEEN) Urine Mucus Present (None Seen) Urine Trichomonas None seen (NONE SEEN) Urine Yeast None (NONE SEEN) Urinalysis Comment None Urine Culture Reflexed Not indicated Test 09/28/16 04:17 09/28/16 07:40 White Blood Count 7.9th/mm3 (3.8-10.1) Red Blood Count 3.55mil/mm3 (4.40-5.80) Hemoglobin 11.1g/dL (13.8-17.2) Hematocrit 33.2% (41.0-50.0) Mean Corpuscular Volume 93.5fL (81-100) Mean Corpuscular Hemoglobin 31.3pg (27.0-35.0) Mean Corpuscular Hemoglobin Concent 33.4% (32.0-37.0) Red Cell Distribution Width 14.1% (12.3-15.4) Platelet Count 146bil/L (150-400) Neutrophils (%) (Auto) 63.7% (40-74) Lymphocytes (%) (Auto) 23.5% (14-46) Monocytes (%) (Auto) 11.1% (4-12) Eosinophils (%) (Auto) 1.3% (0-5) Basophils (%) (Auto) 0.3% (0-3) Sodium Level 141mEq/L (134-144) Potassium Level 3.8mEq/L (3.5-5.2) Chloride Level 107mEq/L (97-108) Carbon Dioxide Level 23mmol/L (18-29) Blood Urea Nitrogen 14mg/dL (8-27) Creatinine 0.63mg/dL (0.76-1.27) Estimat Glomerular Filtration Rate 134mL/min (>59) Glucose Level 111mg/dL (60-99) Lactic Acid Level 0.9mmol/L (0.4-2.0) Calcium Level 8.7mg/dL (8.5-10.1) Phosphorus Level 3.2mg/dL (2.5-4.9) Magnesium Level 1.8mg/dL (1.6-2.6) Total Creatine Kinase 1637U/L (21-232) Discharge Medications Discharge Medications Aspirin (Aspirin) 81 Mg Tablet 81 MG PO DAILY (Reported) Atorvastatin (Lipitor) 20 Mg Tablet 20 MG PO DAILY (Reported) Carbidopa/Levodopa 25-100 mg (Carbidopa/Levodopa 25-100 mg) 1 Each Tablet 1 TABLET PO QID (Reported) Cholecalciferol (Vitamin D3) (Vitamin D3) 5,000 Unit Capsule 5,000 UNIT PO DAILY (Reported) Clonazepam (Clonazepam) 0.5 Mg Tablet 0.5 MG PO HS (Reported) Levothyroxine (Levothyroxine) 137 Mcg Tablet 137 MCG PO QAM (Reported) Ropinirole (Ropinirole) 1 Mg Tablet 1 MG PO TID (Reported) Sildenafil Citrate (Sildenafil) 20 Mg Tablet 20 MG PO DAILY (Reported) As needed Hydrocodone-Acetaminophen 5-325 mg (Hydrocodone-Acetaminophen 5-325 mg) 1 Each Tablet 1 TABLET PO Q6H PRN PRN For Pain (Reported) Followup Plan Disposition: Home, with family Discharge Diet: Heart Healthy Discharge Activity: Limited until seen by PCP Follow-up Provider: Malcolm Rosario MD Follow-up with PCP in: 2 weeks Time spent 40 minutes Malcolm Rosario MD Sep 28, 2016 17:11
--- NOTE | 2016-09-28 18:05 | NUR ---
Discharge Patient left unit via wheelchair with family and student nurse in a stable condition. IV DC'd intact, tele removed, all personal belongings with patient. Discussed stopping metoprolol per MD orders due to bradycardia -- patient and family verbalized understanding. No new medications to discuss, all other continued medications discussed with next due times. Follow up with Dr. Rosario outpatient in 2 weeks.
== END 2016-09-28 17:50 | disposition home or self-care (01) ==
LOC: SED 17:45 → INTOOBSV 21:51 → PCC 21:51
PROVIDERS: ADMIT Internal Medicine; ATTEND Internal Medicine
DX: R53.1 Weakness (principal); S80.01XA Contusion of right knee, initial encounter; Y30.XXXA Falling, jumping or pushed from a high place, undetermined intent, initial encounter; Y93.01 Activity, walking, marching and hiking; Y92.019 Unspecified place in single-family (private) house as the place of occurrence of the external cause; G20 Parkinson's disease; R00.1 Bradycardia, unspecified; I10 Essential (primary) hypertension; G47.33 Obstructive sleep apnea (adult) (pediatric); E03.9 Hypothyroidism, unspecified; D72.829 Elevated white blood cell count, unspecified; D64.9 Anemia, unspecified; R73.9 Hyperglycemia, unspecified; R10.30 Lower abdominal pain, unspecified; I25.10 Atherosclerotic heart disease of native coronary artery without angina pectoris; I47.1 Supraventricular tachycardia; R94.4 Abnormal results of kidney function studies; M19.90 Unspecified osteoarthritis, unspecified site; N50.819 Testicular pain, unspecified; K43.9 Ventral hernia without obstruction or gangrene; M48.06 Spinal stenosis, lumbar region; Z96.89 Presence of other specified functional implants; Z87.891 Personal history of nicotine dependence; Z79.82 Long term (current) use of aspirin
CPT/HCPCS: 36415; 70450; 71010; 73562; 76870; 80048; 80053; 81000; 82306; 82550; 82553; 82607; 82728; 82746; 83036; 83540; 83550; 83605; 83735; 83880; 84100; 84484; 85025; 85610; 85730; 93005; 93975; 96360; 97162; 99285; G0378; J1644; J7030

== ENCOUNTER 2016-10-23 19:21 | Observation (INO) | payer MEDICARE ==
[~2016-10-23] VITALS: Ht 182.9 cm; Wt 103.1 kg
[~2016-10-23 19:21] MED LIST changes: -METO25TA6 PO; +ROPI1TAB3 PO; -ROPI4TAB4 PO
[2016-10-23 19:24] VITALS: BP 174/100; PULSE 83; RESP 16; O2SAT 94
--- NOTE | 2016-10-23 20:12 | ED.REPORT ---
HPI-Extremity Problem Lower Date of Service Oct 23, 2016 ED Provider: Roque Tovar DO A 71 year old male with a history of Parkinson's disease, hypertension, and hypothyroidism presents to the ED complaining of right hip pain. The pt fell two weeks ago but did not think much of it. It took longer than usual to get up off the ground, but he had no acute pain. Three days ago, the pt felt 10/10 pressure and pain in his right hip while attempting to get out of bed in the morning. He denies falling or twisting the hip at that time. Per , his walk has been slower and more shuffling since. This morning, the pain was sharp and he has been unable to bear weight. He has taken leftover hydrocodone from a prior injury with no relief. Nursing Notes Stated Complaint: HIP PAIN, DIFFICULTY WALKING Chief Complaint: Extremity Trauma Nursing Notes Reviewed: Yes Allergies: Coded Allergies: Shellfish (Verified Allergy, Unknown, anaphylaxis--all shellfish, 10/23/16) Scheduled Aspirin (Aspirin) 81 Mg Tablet 81 MG PO DAILY Atorvastatin (Lipitor) 20 Mg Tablet 20 MG PO DAILY Carbidopa/Levodopa 25-100 mg (Carbidopa/Levodopa 25-100 mg) 1 Each Tablet 1 TABLET PO QID Cholecalciferol (Vitamin D3) (Vitamin D3) 5,000 Unit Capsule 5,000 UNIT PO DAILY Clonazepam (Clonazepam) 0.5 Mg Tablet 0.5 MG PO HS Levothyroxine (Levothyroxine) 137 Mcg Tablet 137 MCG PO QAM Ropinirole (Ropinirole) 1 Mg Tablet 1 MG PO TID Sildenafil Citrate (Sildenafil) 20 Mg Tablet 20 MG PO DAILY Scheduled PRN Hydrocodone-Acetaminophen 5-325 mg (Hydrocodone-Acetaminophen 5-325 mg) 1 Each Tablet 1 TABLET PO Q6H PRN PRN For Pain General Time Seen by MD: 20:11 Chief Complaint Hip injury right Hx Obtained From: Patient Arrived By: Wheelchair Onset Occurred: 3 days ago Symptom Duration: Since onset Recent Healthcare: No recent hospitalization, Recent doctor visit Similar Sx Previous: No Past Medical History Past Medical History Parkinson's disease Hypertension Sleep apnea Hypothyroid Ataxia Arthritis Hx Ankle fracture Hx Dislocated shoulder Past Surgical History Deep brain neuro-stimulator placement for Parkinson's Interlaminar SHAYNE MCL repair Left TKA Smoking History Former Smoker Social History Other Social History: Good social support, Ambulatory Status Independent Review of Systems Constitutional: Denies: Fever Musculoskeletal: Reports: Joint pain (right hip) Skin: Denies Rash Neurologic: Denies: Change LOC Complete sys rev & neg: except as marked. Respiratory: Denies: Non-productive cough Cardiovascular: Denies: Chest pain GI: Denies: Abdominal pain Physical Exam Initial Vital Signs Vital Signs (First) Date Time Temp Pulse Resp B/P Pulse Ox O2 Delivery O2 Flow Rate FiO2 10/23/16 19:24 36.6 83 16 174/100 94 Room Air Initial VS: Reviewed Lower Extremity / Pelvis / MS: No deformity good distal cap refill strong femoral pulses bilateral symmetrical lower extremity edema bounding pedal pulses extreme pain with any range of motion of the right hip Ankle / Foot: Atraumatic, Full range of motion General/Constitutional: Awake, Alert Respiratory / Chest: Atraumatic, Breath sounds NL, Breath sounds = bilat, No respiratory distress Cardiovascular: Heart rate NL, Regular rhythm, Heart sounds NL Skin: Atraumatic, Color NL, No rash, Warm, Dry Neurologic: Oriented X3, Speech NL, No motor deficits, No sensory deficits Head / Eyes: Atraumatic, Normocephalic, PERRL, EOMI ENT: Atraumatic, Airway patent, Mucous membranes moist Neck: Atraumatic, Supple, Full range of motion Abdomen: Atraumatic, Soft, Non-tender Back: Atraumatic, Full range of motion Upper Extremity / MS: Atraumatic, Full range of motion Psychiatric: Mood NL bland affect, consistent with Parkinson's disease Interpretation & Diagnostics Interpretation & Diagnostics: Right Hip/Pelvis X-Ray: IMPRESSION: No acute fracture. No osseous lesion. If clinical suspicion and/or symptoms persist, further assessment with repeat plainfilms, or advanced imaging (e.g., CT, MRI, or bone scan) may be helpful for further assessment. Dictated by: Willow Bonilla M.D. on 10/23/2016 at 21:14 Approved by: Willow Bonilla M.D. on 10/23/2016 at 21:14 CT Hip Right: IMPRESSION: 1. No hip fracture. 2. Large amount of rectosigmoid stool associated with sigmoid colon distention. Lab Results Interpretation Result Diagram: 10/23/16205510/23/162055 Test 10/23/16 20:56 10/23/16 22:30 White Blood Count 9.5th/mm3 (3.8-10.1) Red Blood Count 3.82mil/mm3 (4.40-5.80) Hemoglobin 12.0g/dL (13.8-17.2) Hematocrit 35.9% (41.0-50.0) Mean Corpuscular Volume 94.0fL (81-100) Mean Corpuscular Hemoglobin 31.4pg (27.0-35.0) Mean Corpuscular Hemoglobin Concent 33.4% (32.0-37.0) Red Cell Distribution Width 14.3% (12.3-15.4) Platelet Count 194bil/L (150-400) Neutrophils (%) (Auto) 67.2% (40-74) Lymphocytes (%) (Auto) 18.8% (14-46) Monocytes (%) (Auto) 12.3% (4-12) Eosinophils (%) (Auto) 1.4% (0-5) Basophils (%) (Auto) 0.2% (0-3) Sodium Level 139mEq/L (134-144) Potassium Level 4.0mEq/L (3.5-5.2) Chloride Level 99mEq/L (97-108) Carbon Dioxide Level 25mmol/L (18-29) Blood Urea Nitrogen 14mg/dL (8-27) Creatinine 0.90mg/dL (0.76-1.27) Estimat Glomerular Filtration Rate 89mL/min (>59) Glucose Level 119mg/dL (60-99) Calcium Level 9.9mg/dL (8.5-10.1) Total Bilirubin 0.5mg/dL (0.0-1.2) Aspartate Amino Transf (AST/SGOT) 23U/L (0-50) Alanine Aminotransferase (ALT/SGPT) 12U/L (0-44) Alkaline Phosphatase 78U/L (25-160) Total Protein 7.4g/dL (6.4-8.4) Albumin 4.3g/dL (3.4-5.0) Urine Color Yellow (YELLOW) Urine Appearance Clear (CLEAR,HAZY) Urine pH 6.0 (5.0-8.0) Urine Specific [place] 1.014 (1.003-1.035) Urine Protein Negativemg/dL (NEG,TRACE) Urine Glucose (UA) Negativemg/dL (NEGATIVE) Urine Ketones Negativemg/dL (NEGATIVE) Urine Occult Blood Negative (NEGATIVE) Urine Nitrite Negative (NEGATIVE) Urine Bilirubin Negative (NEGATIVE) Urine Urobilinogen Normalmg/dL (NORMAL) Urine Leukocyte Esterase Negative (NEGATIVE) Urine RBC 0-2/hpf (0-2) Urine WBC 0-5/hpf (0-5) Urine Epithelial Cells Occasional/hpf (NONE-MOD) Urine Crystals None seen (NONE SEEN) Urine Bacteria Few/hpf (NONE-FEW) Urine Hyaline Casts None/lpf (NONE) Urine Granular Casts None seen (NONE SEEN) Urine Waxy Casts None seen (NONE SEEN) Urine Red Blood Cell Casts None seen (NONE SEEN) Urine White Blood Cell Casts None seen (NONE SEEN) Urine Mucus Present (None Seen) Urine Trichomonas None seen (NONE SEEN) Urine Yeast None (NONE SEEN) Urinalysis Comment None Urine Culture Reflexed Not indicated Pulse Oximetry Interpretation Pulse Oximetry Interpretation: 94% on room air Re-Eval/Medical Decision Med Decision/Clinical Course X-rays and CT do not demonstrate a fracture. In spite of IV Dilaudid Mr. Winston is having extreme right hip pain. We attempted to have him ambulate however the pain was so great in his right hip that he could not get up out of bed and safely ambulate. Taking into account his age and the Parkinson's and his limited mobility I edema and he is unsafe for discharge. He will be admitted to the hospitalist service for further pain control and physical therapy. Source of Hx: Old records Re-Evaluation/Progress : Time of Eval: 23:00 Patient Status: Condition improved Re-Evaluation/Progress Note: Pt rechecked, who has failed a road test. He is informed of the diagnosis and need for admission. The pt understands and agrees with the plan. All questions are addressed at this time. Consultation : Referral / Consult Name: Tl Mancia MD Consulted With: Hospitalist Call Returned at: 23:05 Greenkeeper: Agrees with eval, Agrees with plan, Accepts admit Note: Spoke with Dr. Mancia, hospitalist, regarding pt's case. Dr. Mancia agrees with the evaluation and agrees to admit the pt. Counseled Regarding: Diagnosis, Lab results, Need for admission Discharge & Departure Impression: Primary Impression: Fall from ground level Additional Impression: Acute hip pain Laterality: right Qualified Code: M25.551 - Pain in right hip Disposition: ADMITTED TO HOSPITAL Discharge Condition All VS Reviewed: Yes Condition: Stable Referrals: Malcolm Rosario MD (PCP) Astrid Attestation Portions of this note were transcribed by Shira Carreno. I, Dr. Tovar personally performed the history, physical exam and medical decision-making; I reviewed and confirmed the accuracy of the information in the transcribed note. Signed by: Astrid Mock, 10/24/2016 and 0049. copies to: Malcolm Rosario MD, Todd P DO Oct 23, 2016 20:12 SHIRA CARRENO Oct 23, 2016 21:23
[2016-10-23 21:02] LABS: BASOPHILS % (AUTO) 0.2 % (0-3); EOSINOPHILS % (AUTO) 1.4 % (0-5); MONOCYTES % (AUTO) 12.3 % (4-12); Mean Corpuscular Hemoglobin 31.4 pg (27.0-35.0); NEUTROPHILS % (AUTO) 67.2 % (40-74); Platelet Count 194 bil/L (150-400)
--- NOTE | 2016-10-23 21:16 | DRSVH ---
PROCEDURE: X-RAY PELVIS W/LAT HIP (RT) ([id number]) INDICATIONS: fall, increased pain TECHNIQUE: AP pelvis with lateral view(s) of the right hip(s). COMPARISON: None. FINDINGS: Bones: No fractures or dislocations. Pelvic ring appears intact. No suspicious bony lesions. Soft tissues: The visualized bowel gas pattern is normal. No suspicious soft tissue calcifications. IMPRESSION: No acute fracture. No osseous lesion. If clinical suspicion and/or symptoms persist, fur ther assessment with repeat plainfilms, or advanced imaging (e.g., CT, MRI, or bone scan) may be help ful for further assessment. Dictated by: Willow Bonilla M.D. on 10/23/2016 at 21:14 Approved by: Willow Bonilla M.D. on 10/23/2016 at 21:14
[2016-10-23] MEDS ORDERED: Ondansetron 2 mg/mL 2 mL Inj IVPUSH PRN ×2 (21:25→23:40)
--- NOTE | 2016-10-23 21:57 | DRSVH ---
PROCEDURE: CT HIP RIGHT W/O CONTRAST ([id number]) INDICATIONS: fall, severe hip pain, negative xrays TECHNIQUE: Noncontrast 3 mm axial sections acquired through the bony pelvis. Additional 3 mm axial sections acq uired through the symptomatic hip joint, with coronal and sagittal reformats. COMPARISON: [facility], CR, XR PELVIS W LATERAL HIP RT, 10/23/2016, 20:39. FINDINGS: Image quality: Excellent. Bones: No fracture. Periarticular osteophyte formation of the bilateral hip joints. Soft tissues: Moderate to large amount of stool within the sigmoid colon and rectum. Moderate distent ion of the sigmoid colon measuring 80 mm. IMPRESSION: 1. No hip fracture. 2. Large amount of rectosigmoid stool associated with sigmoid colon distention. Dictated by: Willow Bonilla M.D. on 10/23/2016 at 21:53 Approved by: Willow Bonilla M.D. on 10/23/2016 at 21:56
[2016-10-23] MEDS: HYDROmorphone 0.5 mg/0.5 mL iSecure Syringe IVPUSH PRN ×2 (22:04→22:44)
[2016-10-23 23:23] LABS: APPEARANCE,URINE CLEAR (CLEAR,HAZY); COLOR,URINE YELLOW (YELLOW); OCCULT BLOOD,URINE NEGATIVE (NEGATIVE); UROBILINOGEN,URINE NORMAL (NORMAL)
[2016-10-23] MEDS ORDERED: Polyethylene Glycol (PEG) 17 Gm Powder PO PRN (23:40)
[2016-10-23] MEDS ORDERED: Alum-Mag Hydrox-Simeth 30 mL Suspension PO PRN (23:40)
[2016-10-23] MEDS ORDERED: HYDROcodone-APAP 5-325 mg Tablet PO PRN (23:40)
[2016-10-23] MEDS ORDERED: HYDROmorphone 0.5 mg/0.5 mL iSecure Syringe IVPUSH PRN (23:45)
--- NOTE | 2016-10-23 23:51 | PCM.HPMED ---
Subjective Date of Service Oct 23, 2016 Primary Provider: Admitting Physician: Tl Mancia MD Primary Care Physician: Malcolm Rosario MD Attending Physician: Tl Mancia MD Admit Status: From the Emergency Department, 23-Hour Observation, Non-Telemetry Chief Complaint: Right hip pain History of Present Illness: Mr. Christoph Winston is a 71 year old male with a history of Parkinson's s/p deep brain neurostimulator placement, hypertension, hypothyroidism, chronic back pain, and sleep apnea who presents to the ED with complaint of worsening right hip pain. Patient had a zycwti-oqpik-bppz about 1 month ago. He was admitted to the hospital on observation for probable syncopal episode one night. Since he got out of the hospital, patient reports no significant pain on Hydrocodone-APAP 10mg Q6H until 3 days ago. He was trying to get out of bed when he noted severe, sharp pain on the right hip and is unable to bear weight. The Hydrocodone no longer provides pain relief. No radiation or numbness/ tingling in the foot. The pain has been progressively worsened so he decided to go to the hospital today. He denies any recent fall or injury. He has been going to physical therapy religiously for both the Parkinson's and the recent fall. Per his , his gait has been slower and more shuffling since the fall. Patient admits to chronic urinary frequency and nocturia, but denies any headache, dizziness, nausea, vomiting, CP, SOB, or bowel dysfunction. In the ER, both hip XR and CT did not demonstrate a fracture. Patient's pain was not well controlled even with IV Dilaudid and thus he was deemed unsafe for discharge and will be admitted to the hospital for pain control and physical therapy. Review of Systems: Comprehensive review of systems conducted and was negative except for the pertinent positives listed in history of present illness above. Allergies Coded Allergies: Shellfish (Verified Allergy, Unknown, anaphylaxis--all shellfish, 10/23/16) Home Medications Medication Name Directions Aspir-81 81 mg tablet,delayed release take 1 tablet by oral route every day atorvastatin 20 mg tablet take 1 tablet by oral route every day Calcium 600 + D(3) 600 mg calcium-200 unit capsule carbidopa ER 25 mg-levodopa 100 mg tablet,extended release take 2 tablets 4 times a day. clonazepam 0.5 mg tablet take 1 tablet (0.5MG) by oral route every bedtime hydrocodone 5 mg-acetaminophen 325 mg tablet take 1-2 tablet by oral route every 6 hours as needed for pain levothyroxine 137 mcg tablet take 1 tablet by oral route every day ropinirole 1 mg tablet take 1 tablet by oral route 3 times every day ropinirole 4 mg tablet TAKE ONE half TABLET BY MOUTH 3 TIMES DAILY Vitamin C ER 1,000 mg tablet,extended release Vitamin D3 5,000 unit tablet 1 tablet by mouth daily PMH Multivessel CAD History of SVT on medical therapy Hypertension Hypothyroidism (history of Graves' disease) Parkinson's status post neurostimulator-history of falls (outpatient record indicates a fall on 09/08/16) Associated dizziness, falls, hallucinations, postural hypotension, gait abnormality, unsteadiness Sleep apnea History of sigmoid volvulus Ventral hernia Arthritis Lumbar spine stenosis without neurogenic claudication (L4-5 grade 1 spondylolisthesis) Hx Ankle fracture Hx Dislocated shoulder left Surgical History Deep brain neuro-stimulator placement for Parkinson's 2014 Interlaminar SHAYNE MCL repair Left and Right TKA Sigmoid volvulus resection in 2009 Left shoulder arthroscopy Family History Father in a fire. Mother had multiple cardiac surgeries (CABG and valve surgeries), but is alive at 93 yo. Maternal uncle had significant heart disease Paternal uncle had Parkinson's disease Social History Hx Alcohol Use: Yes (1 can of beer daily) Hx Substance Use: No Hx Tobacco Use: Yes Smoking Status: Former Smoker (quit in 1976) Additional Information Lives at home with . Uses a walker for ambulation. Exam Vital Signs Vital Sign - Last Date Time Temp Pulse Resp B/P Pulse Ox O2 Delivery O2 Flow Rate FiO2 10/23/16 19:24 36.6 83 16 174/100 94 Room Air Exam General: Obese gentleman, Cooperative, No Acute Distress. Appears slightly groggy, but alert and oriented when asked to. Head: Remote postsurgical changes of the left parietal portion of the scalp and skull consistent with his history of deep brain stimulator placement, atraumatic. External ears normal. Eyes: PERRLA, EOMI. Anicteric sclerae. Conjunctiva are not injected Mouth: Mouth Normal, Mucous Membranes Moist/[place] Neck: Neck supple with full range of motion. No Thyromegaly. Chest & Lungs: Clear to auscultation bilaterally with no crackles, wheezes, or rhonchi. Normal respiratory effort without use of accessory muscles Cardiovascular: Regular Rate/Rhythm, Normal S1, Normal S2, No Murmurs/Rubs/ Gallops. Radial and posterior tibial pulses are 2+ bilaterally. Abdomen: Soft, Non-distended, Non-tender, No masses, Normoactive bowel tones. There is a large easily reducible, nontender hernia of the anterior abdomen on the right. Right lower extremity: Tender to palpation over the right hip capsule without erythema or visible swelling. Significant reduction in external and internal rotation, approximately about 20 degree each. Moderate reduction in flexion. No pain to palpation in the knee joint. Left lower extremity: normal exam Extremities: No cyanosis/clubbing/edema bilat Neurological: Grossly Neurologically Intact, Cranial Nerves 2-12 Intact, Normal Speech (no slurring appreciated). He was able to lift the right leg up but unable to keep it up longer than 3 seconds. Gait was not assessed at this time Psych: Restricted affect. Denies depression or anxiety. Lab and Diagnostics Result Diagram: 10/23/16205510/23/162055 X-Rays, CTs and MRIs PROCEDURE: X-RAY PELVIS W/LAT HIP (RT) IMPRESSION: No acute fracture. No osseous lesion. If clinical suspicion and/or symptoms persist, further assessment with repeat plainfilms, or advanced imaging (e.g., CT, MRI, or bone scan) may be helpful for further assessment. Dictated by: Willow Bonilla M.D. on 10/23/2016 at 21:14 Approved by: Willow Bonilla M.D. on 10/23/2016 at 21:14 PROCEDURE: CT HIP RIGHT W/O CONTRAST IMPRESSION: 1. No hip fracture. 2. Large amount of rectosigmoid stool associated with sigmoid colon distention. Dictated by: Willow Bonilla M.D. on 10/23/2016 at 21:53 Approved by: Willow Bonilla M.D. on 10/23/2016 at 21:56 Assessment & Plan 71 year old male with a medical history including Parkinson's s/p deep brain neurostimulator placement, hypertension, hypothyroid and sleep apnea who presents to the ED for acute right hip pain onset 3 days ago. 1. Acute right hip pain. Present on admission. Active -Likely multifactorial given the patient's recent ground-level fall, underlying Parkinson's (potential progression), and chronic back pain from lumbar spine stenosis. -No acute fracture on the XR or CT. -Physical therapy assessment in the morning -Pain control with home dose of Hydrocodone 10mg Q6H and Dilaudid 0.5mg Q4H PRN. -Activity: Bedrest with bedside commode 2. Anemia, normocytic, likely chronic. Present on admission. -Hgb at 12 on admission, which is stable compared to previous values. -Unknown etiology. Iron panel, B12, and folate were all normal in 08/2016. -Continue to monitor lab 3. Hypertension, chronic, uncontrolled. - BP elevated at 174/100, likely secondary to pain. - Pain control as above. - Metoprolol was discontinue at the last hospitalization in 08/2016 due to sinus bradycardia. Will consider adding a new antihypertensive medication if BP remains elevated. - Continue to monitor vital signs. Chronic conditions: Multivessel CAD-continue aspirin, atorvastatin History of SVT- stable. Hypothyroidism (history of Graves' disease)-continue levothyroxine Parkinson's status post neurostimulator and history of falls-continue carbidopa- levodopa, ropinirole, but will hold sildenafil for now. Patient states that he no longer takes clonazepam. Sleep apnea - O2 supplement while sleeping in the hospital. Patient will bring in home CPAP if he stays here longer. Arthritis-we will make Tylenol available Large ventral hernia-easily reducible without increased tenderness. Asymptomatic. No indication for further diagnostic evaluation at this time. Medication Reconciliation: Will need to be done by the day team. Patient took all of his home meds today. PRN MEDICATIONS - Acetaminophen as needed for mild pain/fever/headache - Bowel regimen as needed - Antiemetic as needed Patient is admitted under observation status with expected length of stay due to severity of presenting symptoms and risk of adverse event. Pain Evaluation: Adequate Pain Control GI Prophylaxis: H2 annie VTE Prophylaxis: Sub-Q Heparin (Unfractionated) Resuscitation Status: CPR: Attempt Resuscitation Attending Statement The patient was seen and examined together with Dr. Paredes on 10/23 and I agree with the history, exam and plan as outlined in the note above. Lucio Paredes DO Oct 23, 2016 23:51 Tl Mancia MD Oct 24, 2016 02:31
[2016-10-24 00:18] VITALS: BP 168/99; PULSE 70; RESP 18; O2SAT 99
[2016-10-24 00:47] VITALS: BP 177/100; PULSE 71; RESP 18; O2SAT 99
[2016-10-24] MEDS: Heparin 5,000 Unit/mL Inj SUBQ SCH ×3 (01:23→16:44)
--- NOTE | 2016-10-24 02:21 | NUR ---
ADMIT; 71 yr old man with parkinsons to room 1027 via gurney approx 0030 from e.r. with c/o right hip pain starting 3 days ago.(suffered a fall 2 weeks ago.) See admit screen. Addendum: 10/24/16 at 0447 by LEEANN CALLE RN Correction: according to previous record, glf was 09/27/16
[2016-10-24] MEDS ORDERED: HYDROcodone-APAP 5-325 mg Tablet PO PRN ×2 (02:30→19:55)
[2016-10-24 05:40] LABS: Mean Corpuscular Hemoglobin 30.7 pg (27.0-35.0); Mean Corpuscular Volume 94.1 fL (81-100)
--- NOTE | 2016-10-24 05:59 | NUR ---
ACTIVITY; stood at side of bed with walker and 2 assist to void 200cc clear yellow urine per urinal. Moves guardedly. Alert, oriented, pleasant.
[2016-10-24 06:08] VITALS: BP 133/72; PULSE 52; RESP 18; O2SAT 96
[2016-10-24] MEDS ORDERED: Magnesium Hydroxide 10 mL Oral Concentration PO ONE (08:15)
--- NOTE | 2016-10-24 10:51 | NUR ---
Comfort NARVAEZ explained and signed/timed. Patient given copy and orginal placed in chart. Lindsey COOPER RN
--- NOTE | 2016-10-24 12:52 | NUR ---
Nausea Patient reported nausea. 2mg of ondansetron given. Reported 8/10 hip pain. Repositioned patient for comfort. Call light and tray table within reach. Will continue to monitor patient hourly. Addendum: 10/24/16 at 1301 by DAYANA LAMBERT RN Pain 2 tabs of Vicodin given. Will continue to monitor patient hourly.
--- NOTE | 2016-10-24 13:49 | NUR ---
Evaluation completed. Please go to "Notes" then click on "Assessments and Notes" (bottom left corner of screen). Then select appropriate discipline tab on top of screen.
[2016-10-24 14:33] VITALS: BP 163/82; PULSE 58; RESP 18; O2SAT 96
--- NOTE | 2016-10-24 16:18 | NUR ---
Social Work Note - Initial Assessment: D/A: See Initial Assessment, the Pt is a 71 y/o male that was admitted under observation status for intractable right hip pain, status post fall. The Pts PCP is NATHANAEL Gross and his primary insurance is [employer] with a [facility] Medicaid supplement, Pt has unknown type of LTC and no VA benefits. EMR reviewed, SW met with the Pt at bedside to explain role and discuss discharge planning. The Pt lives in a one story home with his who provides extended care for the Pt as needed, Advanced Directive paperwork requested. The Pt uses a wheelchair, walker, and cane daily. No HH/SNF history reported. Pt reports that he participates in [facility] about 3x/week. PT eval completed, recommending continued PT during hospital stay and return home at discharge if is able to assist with transfers. [facility] also recommended at discharge. SW to discuss recommendations with the Pts . SW will continue to follow. P: Pt is not ready for discharge at this time. PT eval completed, recommending continued PT during hospital stay and return home if is able to assist with transfers. SW will continue to follow. DIANA Guy Apartment Leasing Manager DIANA Deluca Addendum: 10/24/16 at 1619 by WILL DURON Amended: Links added.
--- NOTE | 2016-10-24 19:22 | PCM.PNMED ---
Subjective Date of Service Oct 24, 2016 Subjective continued right hip pain Exam Vital Signs Vital Sign - Last Date Time Temp Pulse Resp B/P Pulse Ox O2 Delivery O2 Flow Rate FiO2 10/24/16 14:33 36.6 58 18 163/82 96 Room Air Intake and Output 10/23/16 10/23/16 10/24/16 Cumulative From/Thru 15:00 23:00 07:00 10/23/16 19:24 - 10/24/16 06:08 Intake Total 236 ml 236 ml Output Total 300 ml 300 ml Balance -64 ml -64 ml Intake Oral 236 ml 236 ml Output Urine Total 300 ml 300 ml # Voids 3 3 # Bowel Movements 0 0 General: Alert, Cooperative, No Acute Distress Head: Normal Eyes: Scleral Anicteric Nose: Mucous Membr Moist/[place] Mouth: Mucous Membr Moist/[place] Neck: Supple Chest & Lungs: Chest Wall Normal, Clear to auscultation & percussion Cardiovascular: Regular Rate/Rhythm Abdomen: Non-tender, Non-distended, Normoactive bowel tones, Soft Extremities: No cyanosis/clubbing/edma bilat Neurological: Grossly Neurologically Intact, Normal Speech IVs and Medications Medications Reviewed: Medications were reviewed in detail Lab and Diagnostics Result Diagram: 10/24/1651810/24/16518 X-Rays, CTs and MRIs PROCEDURE: X-RAY PELVIS W/LAT HIP (RT) IMPRESSION: No acute fracture. No osseous lesion. If clinical suspicion and/or symptoms persist, further assessment with repeat plainfilms, or advanced imaging (e.g., CT, MRI, or bone scan) may be helpful for further assessment. Dictated by: Willow Bonilla M.D. on 10/23/2016 at 21:14 Approved by: Willow Bonilla M.D. on 10/23/2016 at 21:14 PROCEDURE: CT HIP RIGHT W/O CONTRAST IMPRESSION: 1. No hip fracture. 2. Large amount of rectosigmoid stool associated with sigmoid colon distention. Dictated by: Willow Bonilla M.D. on 10/23/2016 at 21:53 Approved by: Willow Bonilla M.D. on 10/23/2016 at 21:56 Assessment & Plan 71 year old male with a medical history including Parkinson's s/p deep brain neurostimulator placement, hypertension, hypothyroid and sleep apnea who presents to the ED for acute right hip pain onset 3 days earlier 1. Acute right hip pain. Present on admission. Active -Likely multifactorial given the patient's recent ground-level fall, underlying Parkinson's (potential progression), and chronic back pain from lumbar spine stenosis. -No acute fracture on the XR or CT. -continue with Physical therapy assessment -Pain control with home dose of Hydrocodone 10mg Q6H and Dilaudid 0.5mg Q4H PRN. -He has seen neurosurgery as outpatient already and has another appointment setup early next month for a second opinion 2. Anemia, normocytic, likely chronic. Present on admission. -Hgb at 12 on admission, which is stable compared to previous values. -Unknown etiology. Iron panel, B12, and folate were all normal in 08/2016. -Continue to monitor lab 3. Hypertension, chronic, uncontrolled. - BP elevated at 174/100, likely secondary to pain. - Pain control as above. - Metoprolol was discontinue at the last hospitalization in 08/2016 due to sinus bradycardia. Will consider adding a new antihypertensive medication if BP remains elevated. - Continue to monitor vital signs. Chronic conditions: # Multivessel CAD -continue aspirin, atorvastatin # History of SVT- stable. # Hypothyroidism (history of Graves' disease) -continue levothyroxine # Parkinson's status post neurostimulator and history of falls -continue carbidopa-levodopa, ropinirole -has f/u planned with movement disorder specialist setup as outpatient # Sleep apnea - O2 supplement while sleeping in the hospital. Patient will bring in home CPAP if he stays here longer. # Arthritis -we will make Tylenol available # Large ventral hernia -easily reducible without increased tenderness. Asymptomatic. No indication for further diagnostic evaluation at this time. Dispo: 1-2 days pending better pain control and PT recommendations GI Prophylaxis: H2 annie VTE Prophylaxis: Sub-Q Heparin (Unfractionated) VTE Mechanical Devices: Intermittant Pneumatic CD Resuscitation Status: CPR: Attempt Resuscitation Keegan Escalante Oct 24, 2016 19:22
[2016-10-24 21:05] VITALS: BP 185/91; PULSE 70; RESP 18; O2SAT 97
[2016-10-25 00:21] VITALS: BP 160/82; PULSE 58; RESP 18; O2SAT 98
[2016-10-25] MEDS: Heparin 5,000 Unit/mL Inj SUBQ SCH ×3 (01:04→17:25)
--- NOTE | 2016-10-25 02:04 | NUR ---
Mentation Pt has been disoriented and forgetful at times. Pt calls w/ needs, but needs reorientation to time. Pt also found in room by NAC trying to remove all clothing, pt stated that they were hallucinating. Pt redressed and dim light left on in room. Pt has been resting and more oriented w/ this intervention. Will continue to monitor.
--- NOTE | 2016-10-25 03:39 | NUR ---
Confusion At 0330 pt very confused, took all clothes off, trying to get OOB. Difficult to reorient at first. Pt is hallucinating that the room is a mess and upside down, and doesn't know why he's here. Pt was incontinent, changed linens. Pt slowly able to reorient to place and time. Pt now calm and oriented, attends put on patient, as well as adriana alarm for safety. Pt states comfort and awareness at this time. Will continue to closely monitor.
[2016-10-25 04:23] VITALS: BP 155/84; PULSE 65; RESP 18; O2SAT 96
--- NOTE | 2016-10-25 06:05 | NUR ---
Agitation Pt increasingly agitated, wants to be allowed to be naked and get out of bed. Pt oriented x 3, but continues to be more agitated. Pt refused morning medication.
[2016-10-25 09:19] LABS: BASOPHILS % (AUTO) 0.4 % (0-3); EOSINOPHILS % (AUTO) 1.8 % (0-5); MONOCYTES % (AUTO) 10.8 % (4-12); Mean Corpuscular Hemoglobin 31.3 pg (27.0-35.0); Mean Corpuscular Volume 93.4 fL (81-100); NEUTROPHILS % (AUTO) 63.8 % (40-74); Platelet Count 181 bil/L (150-400)
[2016-10-25 09:46] LABS: Magnesium 2.1 mg/dL (1.6-2.6)
[2016-10-25 13:45] VITALS: BP 110/77; PULSE 50; RESP 18; O2SAT 92
--- NOTE | 2016-10-25 18:59 | NUR ---
Pain Patient reported 6/10 back pain. 975 mg of acetaminophen given. Denies nausea at this time. Patient up to chair for meals. Patient repositions self for comfort. Call light and tray table within reach. Will continue to monitor patient hourly.
[2016-10-25 19:44] VITALS: BP 144/88; PULSE 72; RESP 20; O2SAT 96
--- NOTE | 2016-10-25 20:56 | PCM.PNMED ---
Subjective Date of Service Oct 25, 2016 Subjective She is feeling a little bit better today and was able to walk around the bed with physical therapy today. Patient has no new complaints. Exam Vital Signs Vital Sign - Last Date Time Temp Pulse Resp B/P Pulse Ox O2 Delivery O2 Flow Rate FiO2 10/25/16 19:44 36.6 72 20 144/88 96 Room Air Intake and Output 10/24/16 10/24/16 10/25/16 Cumulative From/Thru 15:00 23:00 07:00 10/23/16 19:24 - 10/25/16 05:31 Intake Total 1280 ml 240 ml 1756 ml Output Total 800 ml 825 ml 1925 ml Balance 480 ml -585 ml -169 ml Intake Oral 1280 ml 240 ml 1756 ml Output Urine Total 800 ml 575 ml 1675 ml Stool Total 250 ml 250 ml # Voids 1 2 6 # Bowel Movements 1 1 2 Exam General: Patient is sitting up in a bedside chair in no apparent distress. Patient does not remember being confused last evening. HEENT: Head is significant for old healed surgical wound left frontal area with slight indentation of skull. Eyes: Pupils are equally round and reactive to light and accommodation. Extraocular muscles are intact. Sclera are white, anicteric. Subconjunctival mucosa is pink. Ears and nose are unremarkable. Oropharynx: There is no mucosal lesions, there is no thrush, there is no pharyngitis. Neck: Is supple, there are no nodes, or masses or tenderness. Chest: Is clear to auscultation and percussion. There are no rales, rhonchi, wheezes or rubs. Heart: Rate, rhythm is regular. There is no murmur, rub or gallop. Abdomen: Good bowel sounds are present. Abdomen is soft, nontender, no organomegaly or masses were appreciated. Extremities: Are symmetrical and well perfused. There is no edema, there is no cellulitis, no rash. Neurologic: The patient has weakness of both lower extremities, however he has a little bit more difficulty lifting the right leg compared to the left leg. Cranial nerves II through XII are intact. There are no sensory deficits noted. Psychiatric: Patients mood is calm and shows no sign of agitation. Genital: Deferred Rectal: Deferred Lab and Diagnostics Result Diagram: 10/25/1615 10/25/16 0915 X-Rays, CTs and MRIs PROCEDURE: X-RAY PELVIS W/LAT HIP (RT) ([id number]) INDICATIONS: fall, increased pain TECHNIQUE: AP pelvis with lateral view(s) of the right hip(s). COMPARISON: None. FINDINGS: Bones: No fractures or dislocations. Pelvic ring appears intact. No suspicious bony lesions. Soft tissues: The visualized bowel gas pattern is normal. No suspicious soft tissue calcifications. IMPRESSION: No acute fracture. No osseous lesion. If clinical suspicion and/or symptoms persist, further assessment with repeat plainfilms, or advanced imaging (e.g., CT, MRI, or bone scan) may be helpful for further assessment. Dictated by: Willow Bonilla M.D. on 10/23/2016 at 21:14 Approved by: Willow Bonilla M.D. on 10/23/2016 at 21:14 PROCEDURE: CT HIP RIGHT W/O CONTRAST ([id number]) INDICATIONS: fall, severe hip pain, negative xrays TECHNIQUE: Noncontrast 3 mm axial sections acquired through the bony pelvis. Additional 3 mm axial sections acquired through the symptomatic hip joint, with coronal and sagittal reformats. COMPARISON: [facility], CR, XR PELVIS W LATERAL HIP RT, 10/23/2016, 20:39. FINDINGS: Image quality: Excellent. Bones: No fracture. Periarticular osteophyte formation of the bilateral hip joints. Soft tissues: Moderate to large amount of stool within the sigmoid colon and rectum. Moderate distention of the sigmoid colon measuring 80 mm. IMPRESSION: 1. No hip fracture. 2. Large amount of rectosigmoid stool associated with sigmoid colon distention. Dictated by: Willow Bonilla M.D. on 10/23/2016 at 21:53 Approved by: Willow Bonilla M.D. on 10/23/2016 at 21:56 Assessment & Plan The patient is a 71 year old male with a medical history of Parkinson's with deep brain neurostimulator placement, hypertension, hypothyroid and sleep apnea who presents to the ED for acute right hip pain onset 3 days earlier. Patient was admitted to the hospital service for further evaluation and treatment. 1. Acute right hip pain. Present on admission. Active - Likely multifactorial given the patient's recent ground-level fall, underlying Parkinson's (potential progression), and chronic back pain from lumbar spine stenosis. - No acute fracture on the XR or CT. - We will continue with Physical therapy assessment and therapy - Pain control will need to be accomplished without narcotics. This is because patient became very confused last evening on narcotics - He has seen neurosurgery as outpatient already and has another appointment setup early next month for a second opinion. I have encouraged the patient to pursue this with neurosurgeon Burke Carbajal. Patient will continue to see his neurologist Dr. Joon Pierson 2. Anemia, normocytic, likely chronic. Present on admission. - Hgb at 12 on admission, which is stable compared to previous values. - Unknown etiology. Iron panel, B12, and folate were all normal in 08/2016. - Continue to monitor lab 3. Hypertension, chronic, uncontrolled. - BP elevated at 174/100, likely secondary to pain. - Pain control as above. - Metoprolol was discontinue at the last hospitalization in 08/2016 due to sinus bradycardia. - We will start low-dose amlodipine in a.m. at 2.5 mg by mouth daily. - Continue to monitor vital signs closely. Chronic conditions: # Multivessel CAD -We will continue continue aspirin, atorvastatin as at home # History of SVT - This appears to be stable. With no evidence of recurrence - We will continue to observe closely off metoprolol # Hypothyroidism (history of Graves' disease) -We will continue levothyroxine # Parkinson's status post neurostimulator and history of falls -We will continue carbidopa-levodopa, ropinirole -The patient has f/u planned with movement disorder specialist setup as outpatient - His neurologist is Dr. Joon Pierson and he will follow-up with him # Sleep apnea - O2 supplement while sleeping in the hospital. Patient will bring in home CPAP if he stays here longer. # Arthritis - We will continue to make Tylenol available # Large ventral hernia -This is easily reducible without increased tenderness. Asymptomatic. No indication for further diagnostic evaluation at this time. Disposition: We will likely discharge patient home in a.m. if stable Pain Evaluation: Adequate Pain Control GI Prophylaxis: H2 annie VTE Prophylaxis: Sub-Q Heparin (Unfractionated) VTE Mechanical Devices: Intermittant Pneumatic CD Resuscitation Status: CPR: Attempt Resuscitation Keith Gannon MD Oct 25, 2016 20:56
[2016-10-26] MEDS: Heparin 5,000 Unit/mL Inj SUBQ SCH ×2 (01:10→08:59)
[2016-10-26 05:14] VITALS: BP 139/83; PULSE 57; RESP 20; O2SAT 98
--- NOTE | 2016-10-26 06:10 | NUR ---
Ambulation Pt complains of some back pain, APAP effective. No narcotics given to prevent delerium, per . Pt has shuffling gait, can ambulate with BR with 1x assist, FWW and coaching. No complaints of SOB, no other complaints of pain. Care continues
[2016-10-26 07:19] LABS: BASOPHILS % (AUTO) 0.3 % (0-3); EOSINOPHILS % (AUTO) 3.5 % (0-5); MONOCYTES % (AUTO) 14.3 % (4-12); Mean Corpuscular Hemoglobin 31.3 pg (27.0-35.0); Mean Corpuscular Volume 93.7 fL (81-100); NEUTROPHILS % (AUTO) 55.6 % (40-74); Platelet Count 188 bil/L (150-400)
[2016-10-26 07:49] LABS: Magnesium 1.9 mg/dL (1.6-2.6)
[2016-10-26 09:07] VITALS: BP 123/75; PULSE 67; RESP 15; O2SAT 94
--- NOTE | 2016-10-26 12:26 | NUR ---
Social Work-readiness for discharge: Data:EMR reviewed. Pt is on day 3 of hospitalization for intractable right hip pain per H&P. Pt is not medically stable anticipate later today or tomorrow. Pt has seen pt and recommended outpt vs HH. SW followed up with pt and Lucia [phone] at bedside, SW role explained.SW followed up regarding HH vs outpt PT. and pt would prefer outpt PT services. has questions about private pay caregiving resources. SW provided her with senior resource guidebook. Pt's to provide transport home at discharge. No anticipated discharge needs. SW will continue to follow if needs arise. Assessment:Pt who is independent at baseline. Plan:Pt to discharge home when medically stable via POV. Pt wants to do outpt PT services. No anticipated discharge needs. SW will continue to follow if needs arise. DIANA Deluca
--- NOTE | 2016-10-26 13:25 | PCM.DIMED ---
Discharge Instructions Date of Service Oct 26, 2016 Dates of Hospitalization Oct 23, 2016 at 23:35 Discharge Diagnosis Discharge Diagnosis Right leg weakness Diet Heart Healthy Activity No restrictions (The patient may resume usual activities gradually as tolerated. ) Call your provider Fever or Chills, Shortness of breath, Bleeding, Chest pain, Vomitting, Excessive diarrhea, Weakness (unilateral) Patient Instructions Follow-up Provider: Malcolm Rosario MD Follow-up with PCP in: 2 weeks Keith Gannon MD Oct 26, 2016 13:25
--- NOTE | 2016-10-26 13:27 | NUR ---
Social Work-discharge: Data:EMR reviewed. Pt is on day 3 of hospitalization for intractable right hip pain per H&P. Pt is medically stable for discharge today. PT has cleared pt for home with outpt vs HH. Pt and would prefer outpt. SW provided them with caregiver resources through Senior Resources guidebook. Pt's to provide transport home. No discharge needs identified. All updated and agreeable to plan. Assessment:Pt who is independent at baseline. Plan:Pt to discharge home today via POV. Pt wants to do outpt PT services. Caregiver resources provided. No discharge needs identified. All updated and agreeable to plan. DIANA Deluca
[2016-10-26] MEDS ORDERED: DOCU-41 PO (13:31)
--- NOTE | 2016-10-26 14:53 | NUR ---
Discharge All discharge teaching and instructions done with family at bedside. IV d/c'd intact. No items in the safe or pharmacy. Pt to resume PT as scheduled and f/u in 2 weeks with his PCP. Verified RX was faxed to [facility].
--- NOTE | 2016-10-26 23:40 | PCM.DC.MED ---
Discharge Summary Date of Service Oct 26, 2016 Dates of Hospitalization Date of Hospital Admission Oct 23, 2016 at 23:35 Date of Discharge: Oct 26, 2016 Providers: Admitting Physician: Tl Mancia MD Primary Care Physician: Malcolm Rosario MD Attending Physician: Tl Mancia MD Diagnosis at Time of Discharge Diagnosis at Time of Discharge Right leg weakness Procedures XRay, CTs & MRIs PROCEDURE: X-RAY PELVIS W/LAT HIP (RT) ([id number]) INDICATIONS: fall, increased pain TECHNIQUE: AP pelvis with lateral view(s) of the right hip(s). COMPARISON: None. FINDINGS: Bones: No fractures or dislocations. Pelvic ring appears intact. No suspicious bony lesions. Soft tissues: The visualized bowel gas pattern is normal. No suspicious soft tissue calcifications. IMPRESSION: No acute fracture. No osseous lesion. If clinical suspicion and/or symptoms persist, further assessment with repeat plainfilms, or advanced imaging (e.g., CT, MRI, or bone scan) may be helpful for further assessment. Dictated by: Willow Bonilla M.D. on 10/23/2016 at 21:14 Approved by: Willow Bonilla M.D. on 10/23/2016 at 21:14 PROCEDURE: CT HIP RIGHT W/O CONTRAST ([id number]) INDICATIONS: fall, severe hip pain, negative xrays TECHNIQUE: Noncontrast 3 mm axial sections acquired through the bony pelvis. Additional 3 mm axial sections acquired through the symptomatic hip joint, with coronal and sagittal reformats. COMPARISON: [facility], CR, XR PELVIS W LATERAL HIP RT, 10/23/2016, 20:39. FINDINGS: Image quality: Excellent. Bones: No fracture. Periarticular osteophyte formation of the bilateral hip joints. Soft tissues: Moderate to large amount of stool within the sigmoid colon and rectum. Moderate distention of the sigmoid colon measuring 80 mm. IMPRESSION: 1. No hip fracture. 2. Large amount of rectosigmoid stool associated with sigmoid colon distention. Dictated by: Willow Bonilla M.D. on 10/23/2016 at 21:53 Approved by: Willow Bonilla M.D. on 10/23/2016 at 21:56 Brief History Mr. Christoph Winston is a 71 year old male with a history of Parkinson's s/p deep brain neurostimulator placement, hypertension, hypothyroidism, chronic back pain, and sleep apnea who presents to the ED with complaint of worsening right hip pain. Patient had a ilussp-gcbbi-yvqm about 1 month ago. He was admitted to the hospital on observation for probable syncopal episode one night. Since he got out of the hospital, patient reports no significant pain on Hydrocodone-APAP 10mg Q6H until 3 days ago. He was trying to get out of bed when he noted severe, sharp pain on the right hip and is unable to bear weight. The Hydrocodone no longer provides pain relief. No radiation or numbness/ tingling in the foot. The pain has been progressively worsened so he decided to go to the hospital today. He denies any recent fall or injury. He has been going to physical therapy religiously for both the Parkinson's and the recent fall. Per his , his gait has been slower and more shuffling since the fall. Patient admits to chronic urinary frequency and nocturia, but denies any headache, dizziness, nausea, vomiting, CP, SOB, or bowel dysfunction. In the ER, both hip XR and CT did not demonstrate a fracture. Patient's pain was not well controlled even with IV Dilaudid and thus he was deemed unsafe for discharge and was admitted to the hospitalist service under observation for pain control and physical therapy. Hospital Course The patient is a 71 year old male with a medical history of Parkinson's with deep brain neurostimulator placement, hypertension, hypothyroid and sleep apnea who presents to the ED for acute right hip pain onset 3 days earlier. Patient was admitted to the hospital service for further evaluation and treatment. 1. Acute right hip pain. Present on admission. Active - Likely multifactorial given the patient's recent ground-level fall, underlying Parkinson's (potential progression), and chronic back pain from lumbar spine stenosis. - No acute fracture on the XR or CT. - We will continue with Physical therapy assessment and therapy - Pain control will need to be accomplished without narcotics. This is because patient became very confused last evening on narcotics - He has seen neurosurgery as outpatient already and has another appointment setup early next month for a second opinion. I have encouraged the patient to pursue this with neurosurgeon Burke Carbajal. Patient will continue to see his neurologist Dr. Joon Pierson 2. Anemia, normocytic, likely chronic. Present on admission. - Hgb at 12 on admission, which is stable compared to previous values. - Unknown etiology. Iron panel, B12, and folate were all normal in 08/2016. - Continue to monitor lab 3. Hypertension, chronic, uncontrolled. - BP elevated at 174/100, likely secondary to pain. - Pain control as above. - Metoprolol was discontinue at the last hospitalization in 08/2016 due to sinus bradycardia. - We will start low-dose amlodipine in a.m. at 2.5 mg by mouth daily. - Continue to monitor vital signs closely. Chronic conditions: # Multivessel CAD -We will continue continue aspirin, atorvastatin as at home # History of SVT - This appears to be stable. With no evidence of recurrence - We will continue to observe closely off metoprolol # Hypothyroidism (history of Graves' disease) -We will continue levothyroxine # Parkinson's status post neurostimulator and history of falls -We will continue carbidopa-levodopa, ropinirole -The patient has f/u planned with movement disorder specialist setup as outpatient - His neurologist is Dr. Joon Pierson and he will follow-up with him # Sleep apnea - O2 supplement while sleeping in the hospital. Patient will bring in home CPAP if he stays here longer. # Arthritis - We will continue to make Tylenol available # Large ventral hernia -This is easily reducible without increased tenderness. Asymptomatic. No indication for further diagnostic evaluation at this time. Disposition:The patient walked with nursing staff today in physical therapy and is much improved. Patient will be discharged home today in the care of his . Exam Vital Signs (Last) Date Time Temp Pulse Resp B/P Pulse Ox O2 Delivery O2 Flow Rate FiO2 10/26/16 13:43 Room Air 10/26/16 09:07 36.0 67 15 123/75 94 Exam General: Patient is sitting up in bed. Patient did not experience any confusion last evening. He is much brighter more alert today. HEENT: Head is significant for old healed surgical wound left frontal area with slight indentation of skull. Eyes: Pupils are equally round and reactive to light and accommodation. Extraocular muscles are intact. Sclera are white, anicteric. Subconjunctival mucosa is pink. Ears and nose are unremarkable. Oropharynx: There is no mucosal lesions, there is no thrush, there is no pharyngitis. Neck: Is supple, there are no nodes, or masses or tenderness. Chest: Is clear to auscultation and percussion. There are no rales, rhonchi, wheezes or rubs. Heart: Rate, rhythm is regular. There is no murmur, rub or gallop. Abdomen: Good bowel sounds are present. Abdomen is soft, nontender, no organomegaly or masses were appreciated. Extremities: Are symmetrical and well perfused. There is no edema, there is no cellulitis, no rash. Neurologic: The patient has weakness of both lower extremities, however he has a little bit more difficulty lifting the right leg compared to the left leg. Strength is much improved today. Cranial nerves II through XII are intact. There are no sensory deficits noted. Psychiatric: Patients mood is calm and shows no sign of agitation. Genital: Deferred Rectal: Deferred Test 10/23/16 22:30 10/26/16 06:41 Urine Color Yellow (YELLOW) Urine Appearance Clear (CLEAR,HAZY) Urine pH 6.0 (5.0-8.0) Urine Specific [place] 1.014 (1.003-1.035) Urine Protein Negativemg/dL (NEG,TRACE) Urine Glucose (UA) Negativemg/dL (NEGATIVE) Urine Ketones Negativemg/dL (NEGATIVE) Urine Occult Blood Negative (NEGATIVE) Urine Nitrite Negative (NEGATIVE) Urine Bilirubin Negative (NEGATIVE) Urine Urobilinogen Normalmg/dL (NORMAL) Urine Leukocyte Esterase Negative (NEGATIVE) Urine RBC 0-2/hpf (0-2) Urine WBC 0-5/hpf (0-5) Urine Epithelial Cells Occasional/hpf (NONE-MOD) Urine Crystals None seen (NONE SEEN) Urine Bacteria Few/hpf (NONE-FEW) Urine Hyaline Casts None/lpf (NONE) Urine Granular Casts None seen (NONE SEEN) Urine Waxy Casts None seen (NONE SEEN) Urine Red Blood Cell Casts None seen (NONE SEEN) Urine White Blood Cell Casts None seen (NONE SEEN) Urine Mucus Present (None Seen) Urine Trichomonas None seen (NONE SEEN) Urine Yeast None (NONE SEEN) Urinalysis Comment None Urine Culture Reflexed Not indicated White Blood Count 7.2th/mm3 (3.8-10.1) Red Blood Count 3.80mil/mm3 (4.40-5.80) Hemoglobin 11.9g/dL (13.8-17.2) Hematocrit 35.6% (41.0-50.0) Mean Corpuscular Volume 93.7fL (81-100) Mean Corpuscular Hemoglobin 31.3pg (27.0-35.0) Mean Corpuscular Hemoglobin Concent 33.4% (32.0-37.0) Red Cell Distribution Width 14.4% (12.3-15.4) Platelet Count 188bil/L (150-400) Neutrophils (%) (Auto) 55.6% (40-74) Lymphocytes (%) (Auto) 26.2% (14-46) Monocytes (%) (Auto) 14.3% (4-12) Eosinophils (%) (Auto) 3.5% (0-5) Basophils (%) (Auto) 0.3% (0-3) Sodium Level 139mEq/L (134-144) Potassium Level 4.1mEq/L (3.5-5.2) Chloride Level 99mEq/L (97-108) Carbon Dioxide Level 23mmol/L (18-29) Blood Urea Nitrogen 18mg/dL (8-27) Creatinine 0.86mg/dL (0.76-1.27) Estimat Glomerular Filtration Rate 94mL/min (>59) Glucose Level 121mg/dL (60-99) Calcium Level 9.7mg/dL (8.5-10.1) Magnesium Level 1.9mg/dL (1.6-2.6) Total Bilirubin 0.6mg/dL (0.0-1.2) Aspartate Amino Transf (AST/SGOT) 23U/L (0-50) Alanine Aminotransferase (ALT/SGPT) 5U/L (0-44) Alkaline Phosphatase 79U/L (25-160) Total Protein 6.7g/dL (6.4-8.4) Albumin 4.1g/dL (3.4-5.0) Discharge Medications Discharge Medications Aspirin (Aspirin) 81 Mg Tablet 81 MG PO DAILY (Reported) Atorvastatin (Lipitor) 20 Mg Tablet 20 MG PO DAILY (Reported) Carbidopa/Levodopa 25-100 mg (Carbidopa/Levodopa 25-100 mg) 1 Each Tablet 1 TABLET PO QID (Reported) Cholecalciferol (Vitamin D3) (Vitamin D3) 5,000 Unit Capsule 5,000 UNIT PO DAILY (Reported) Clonazepam (Clonazepam) 0.5 Mg Tablet 0.5 MG PO HS (Reported) Docusate Sodium (Colace) 100 Mg Capsule 100 MG PO DAILY Prescribed by: SVETLANA GANNON MD Levothyroxine (Levothyroxine) 137 Mcg Tablet 137 MCG PO QAM (Reported) Ropinirole (Ropinirole) 1 Mg Tablet 1 MG PO TID (Reported) Sildenafil Citrate (Sildenafil) 20 Mg Tablet 20 MG PO DAILY (Reported) As needed Hydrocodone-Acetaminophen 5-325 mg (Hydrocodone-Acetaminophen 5-325 mg) 1 Each Tablet 1 TABLET PO Q6H PRN PRN For Pain (Reported) Followup Plan Disposition: Patient is being discharged home with his . Discharge Diet: Heart Healthy Discharge Activity: No restrictions (The patient may resume usual activities gradually as tolerated.) Follow-up Provider: Malcolm Rosario MD Follow-up with PCP in: 2 weeks Time spent Time spent on discharging this patient was greater than 35 minutes, over half of which was involved in counseling and coordination of care. Keith Gannon MD Oct 26, 2016 23:40
== END 2016-10-26 15:00 | disposition home or self-care (01) ==
LOC: SED 19:21 → OSC 23:35
PROVIDERS: ADMIT Hospitalist; ATTEND Hospitalist
DX: M25.551 Pain in right hip (principal); R53.1 Weakness; D64.9 Anemia, unspecified; I10 Essential (primary) hypertension; I25.10 Atherosclerotic heart disease of native coronary artery without angina pectoris; G20 Parkinson's disease; K43.9 Ventral hernia without obstruction or gangrene; R27.0 Ataxia, unspecified; G47.30 Sleep apnea, unspecified; M19.90 Unspecified osteoarthritis, unspecified site; E03.9 Hypothyroidism, unspecified; W18.30XA Fall on same level, unspecified, initial encounter; Y93.01 Activity, walking, marching and hiking; Y92.9 Unspecified place or not applicable; Y99.8 Other external cause status; Z91.013 Allergy to seafood; Z79.82 Long term (current) use of aspirin; Z87.891 Personal history of nicotine dependence; Z96.89 Presence of other specified functional implants; M54.89 Other dorsalgia
CPT/HCPCS: 36415; 73501; 73700; 80053; 81000; 83735; 85025; 85027; 96374; 96375; 96376; 97162; 97530; 99285; G0378; G8978; G8979; J1170; J1644; J2405

== ENCOUNTER 2017-03-21 11:46 | Emergency (ER) | payer MEDICARE ==
[~2017-03-21] VITALS: Ht 185.4 cm; Wt 118.2 kg
[~2017-03-21 11:46] MED LIST changes: +DOCU-41 PO
[2017-03-21 11:51] VITALS: BP 187/101; PULSE 90; RESP 18; O2SAT 97
--- NOTE | 2017-03-21 12:00 | ED.REPORT ---
HPI-General Illness Date of Service Mar 21, 2017 ED Provider: Sage Matamoros MD The pt is a 71 y/o male w/ a hx of Parkinsons disease, HTN, arthritis, and a dislocated shoulder presenting to the ED complaining of R shoulder pain. The pt describes the pain as being in the socket, constant, and reports no previous injuries or falls. He also reports pain to the back of his neck. The pt has taken oxy-something for the pain. Denies chest pain, SOB, leg pain, leg edema , numbness or tingling, cough, or vomiting. His also reports him being nauseated twice yesterday, decreased appetite, as well as the pt not having a bowel movement since his back surgery at [place] 4 days ago. Nursing Notes Stated Complaint: POST BACK SURGERY PAIN Chief Complaint: R shoulder pain Nursing Notes Reviewed: Yes Allergies: Coded Allergies: Shellfish (Verified Allergy, Unknown, anaphylaxis--all shellfish, 03/21/17) Scheduled Aspirin (Aspirin) 81 Mg Tablet 81 MG PO DAILY Atorvastatin (Lipitor) 20 Mg Tablet 20 MG PO DAILY Carbidopa/Levodopa 25-100 mg (Carbidopa/Levodopa 25-100 mg) 1 Each Tablet 1 TABLET PO QID Cholecalciferol (Vitamin D3) (Vitamin D3) 5,000 Unit Capsule 5,000 UNIT PO DAILY Clonazepam (Clonazepam) 0.5 Mg Tablet 0.5 MG PO HS Docusate Sodium (Colace) 100 Mg Capsule 100 MG PO DAILY Levothyroxine (Levothyroxine) 137 Mcg Tablet 137 MCG PO QAM Ropinirole (Ropinirole) 1 Mg Tablet 1 MG PO TID Sildenafil Citrate (Sildenafil) 20 Mg Tablet 20 MG PO DAILY Scheduled PRN Hydrocodone-Acetaminophen 5-325 mg (Hydrocodone-Acetaminophen 5-325 mg) 1 Each Tablet 1 TABLET PO Q6H PRN PRN For Pain General Time Seen by MD: 11:58 Chief Complaint Other (R shoulder pain ) Hx Obtained From: Patient, Spouse Arrived By: Walk-in Sudden in Onset?: Yes Onset Occurred: 4 days ago Symptom Duration: Since onset Recent Healthcare: No recent hospitalization, Recent doctor visit Similar Sx Previous: Yes Past Medical History Past Medical History Parkinson's disease Hypertension Sleep apnea Hypothyroid Ataxia Arthritis Hx Ankle fracture Hx Dislocated shoulder Past Surgical History Deep brain neuro-stimulator placement for Parkinson's Interlaminar SHAYNE MCL repair Left TKA Smoking History Former Smoker Social History Other Social History: Good social support, Ambulatory Status Independent Review of Systems Posterior neck pain; Decreased appetite; Denies leg pain, edema, or extremity numbness or tingling; Full Review of Systems Respiratory: Denies: Non-productive cough, Shortness of breath Cardiovascular: Denies: Chest pain GI: Reports: Constipation, Nausea, Denies: Vomiting Musculoskeletal: Reports: Joint pain (R shoulder ) Complete sys rev & neg: except as marked. Physical Exam Vital Signs Vital Signs Date Time Temp Pulse Resp B/P Pulse Ox O2 Delivery O2 Flow Rate FiO2 03/21/17 13:12 37.2 83 18 169/70 96 Room Air 03/21/17 11:51 38.2 90 18 187/101 97 Room Air Initial VS: Reviewed General/Constitutional: Well-developed, Well-nourished Head / Eyes: Atraumatic, Normocephalic, PERRL ENT: Mucous membranes moist, Conjunctiva normal, No scleral icterus Neck: Supple, Non-tender, Full range of motion Respiratory: Breath sounds normal, Clear to auscultation, No respiratory distress Neurologic: Alert, Oriented, Nonfocal Cardiovascular: Heart rate NL, Regular rhythm, Heart sounds NL RLE edema Back: Full range of motion 6 cm vertical incision in the midline lower back area w/ no surrounding erythema Upper Extremities Upper Extremity / MS: No deformity Reproducible R shoulder pain Skin: No rash, Warm, Dry Interpretation & Diagnostics Lab Results Interpretation Result Diagram: 03/21/17 1215 03/21/17 1215 Test 03/21/17 12:15 03/21/17 12:36 White Blood Count 11.4th/mm3 (3.8-10.1) Red Blood Count 4.07mil/mm3 (4.40-5.80) Hemoglobin 12.8g/dL (13.8-17.2) Hematocrit 37.7% (41.0-50.0) Mean Corpuscular Volume 92.6fL (81-100) Mean Corpuscular Hemoglobin 31.4pg (27.0-35.0) Mean Corpuscular Hemoglobin Concent 34.0% (32.0-37.0) Red Cell Distribution Width 13.6% (12.3-15.4) Platelet Count 170bil/L (150-400) Neutrophils (%) (Auto) 75.2% (40-74) Lymphocytes (%) (Auto) 12.0% (14-46) Monocytes (%) (Auto) 11.3% (4-12) Eosinophils (%) (Auto) 1.1% (0-5) Basophils (%) (Auto) 0.2% (0-3) Sodium Level 134mEq/L (134-144) Potassium Level 4.3mEq/L (3.5-5.2) Chloride Level 93mEq/L (97-108) Carbon Dioxide Level 24mmol/L (18-29) Blood Urea Nitrogen 12mg/dL (8-27) Creatinine 0.83mg/dL (0.76-1.27) Estimat Glomerular Filtration Rate 98mL/min (>59) Glucose Level 147mg/dL (60-99) Lactic Acid Level 1.2mmol/L (0.4-2.0) Calcium Level 9.5mg/dL (8.5-10.1) Magnesium Level 1.7mg/dL (1.6-2.6) Total Bilirubin 1.2mg/dL (0.0-1.2) Aspartate Amino Transf (AST/SGOT) 24U/L (0-50) Alanine Aminotransferase (ALT/SGPT) 8U/L (0-44) Alkaline Phosphatase 79U/L (25-160) C-Reactive Protein 13.5mg/dL (0.0-0.5) Total Protein 7.5g/dL (6.4-8.4) Albumin 4.2g/dL (3.4-5.0) Procalcitonin 0.05ng/mL (0.00-0.08) Urine Color Yellow (YELLOW) Urine Appearance Hazy (CLEAR,HAZY) Urine pH 6.0 (5.0-8.0) Urine Specific [place] 1.020 (1.003-1.035) Urine Protein Negativemg/dL (NEG,TRACE) Urine Glucose (UA) Negativemg/dL (NEGATIVE) Urine Ketones Negativemg/dL (NEGATIVE) Urine Occult Blood Large (NEGATIVE) Urine Nitrite Negative (NEGATIVE) Urine Bilirubin Negative (NEGATIVE) Urine Urobilinogen Normalmg/dL (NORMAL) Urine Leukocyte Esterase Negative (NEGATIVE) Urine RBC 11-50/hpf (0-2) Urine WBC 0-5/hpf (0-5) Urine Epithelial Cells Occasional/hpf (NONE-MOD) Urine Crystals None seen (NONE SEEN) Urine Bacteria Few/hpf (NONE-FEW) Urine Hyaline Casts None/lpf (NONE) Urine Granular Casts None seen (NONE SEEN) Urine Waxy Casts None seen (NONE SEEN) Urine Red Blood Cell Casts None seen (NONE SEEN) Urine White Blood Cell Casts None seen (NONE SEEN) Urine Mucus None seen (None Seen) Urine Trichomonas None seen (NONE SEEN) Urine Yeast None (NONE SEEN) Urinalysis Comment None Urine Culture Reflexed Not indicated ECG Interpretation ECG Interpretation: Rate 82 NSR No STT changes Time: 13:26 Interpreted by: ED physician X-Ray Abdominal Interpretation IMPRESSION: Markedly distended colon is at least suggestive of a colonic ileus with associated constipation. However, given the markedly distended loop of colon extending within the right abdomen, the possibility of sigmoid volvulus cannot be entirely excluded. A CT of the abdomen and pelvis with oral and intravenous contrast is recommended for further evaluation. Dictated by: Jarvis Ramos M.D. on 03/21/2017 at 12:57 Approved by: Jarvis Ramos M.D. on 03/21/2017 at 12:59 Study: 2 view Interpretation / Wet Read by: Interpret - Radiologist X-Ray Interpretation Xray Interpretation: IMPRESSION: Degenerative changes of the right shoulder joints without acute fracture. Dictated by: Jarvis Ramos M.D. on 03/21/2017 at 12:48 Approved by: Jarvis Ramos M.D. on 03/21/2017 at 12:57 X-Ray Ordered: Shoulder right Re-Eval/Medical Decision Med Decision/Clinical Course 71-year-old male who is one week status post lumbar spine surgery presenting complaining of right neck pain and shoulder pain since this morning. On arrival he was noted to have fever 38.2. White blood cell count was 11,000. Chest x-ray was normal. Normal x-ray with significant distention possibly ileus cannot rule out volvulus. CRP was 13,000. Urine negative for infection. Patient signed out to Dr. Everett pending CT abdomen and pelvis with oral contrast. Case was discussed with patient's neurosurgeon Dr. Carbajal who recommended inflammatory markers. Source of Hx: Old records Consultation : Referral / Consult Name: Burke Carbajal MD Consulted With: Surgeon Call Returned at: 13:29 Note: Discussed pt's case. Recommends a CRP and to call back with the results Counseled Regarding: Diagnosis, Lab results, Need for follow-up, When/why to return to ED Discharge & Departure Primary Impression: Fever Additional Impressions: Ileus Shoulder pain, left Disposition: Home Discharge Condition All VS Reviewed: Yes Condition: Stable Referrals: Malcolm Rosario MD (PCP) Care Transferred to: Dr. Everett Care Transferred at: 15:00 Scribe Attestation Portions of this note were transcribed by Man Sandhu. I, Dr. Matamoros personally performed the history, physical exam and medical decision-making; I reviewed and confirmed the accuracy of the information in the transcribed note. copies to: Malcolm Rosario MD, Ben M MD Mar 21, 2017 12:00 Man Sandhu Mar 21, 2017 13:16
[2017-03-21] MEDS ORDERED: Ondansetron 2 mg/mL 2 mL Inj IVPUSH PRN (12:15)
[2017-03-21 12:42] LABS: BASOPHILS % (AUTO) 0.2 % (0-3); EOSINOPHILS % (AUTO) 1.1 % (0-5); MONOCYTES % (AUTO) 11.3 % (4-12); Mean Corpuscular Hemoglobin 31.4 pg (27.0-35.0); Mean Corpuscular Volume 92.6 fL (81-100); NEUTROPHILS % (AUTO) 75.2 % (40-74); Platelet Count 170 bil/L (150-400)
[2017-03-21 13:10] LABS: APPEARANCE,URINE HAZY (CLEAR,HAZY); COLOR,URINE YELLOW (YELLOW); OCCULT BLOOD,URINE LARGE (NEGATIVE); UROBILINOGEN,URINE NORMAL (NORMAL)
[2017-03-21 13:11] LABS: Magnesium 1.7 mg/dL (1.6-2.6)
[2017-03-21 13:12] VITALS: BP 169/70; PULSE 83; RESP 18; O2SAT 96
--- NOTE | 2017-03-21 13:58 | DRSVH ---
PROCEDURE: X-RAY RIGHT SHOULDER, MINIMUM TWO VIEWS ([id number]) INDICATIONS: fever, chest pain TECHNIQUE: 4 views of the shoulder were acquired. COMPARISON: None. FINDINGS: Bones: No fractures or dislocations. No suspicious bony lesions. Visualized ribs appear intact. M oderate degenerative changes are present involving the glenohumeral and acromial clavicular joints. Soft tissues: No suspicious soft tissue calcifications. IMPRESSION: Degenerative changes of the right shoulder joints without acute fracture. Dictated by: Jarvis Ramos M.D. on 03/21/2017 at 12:48 Approved by: Jarvis Ramos M.D. on 03/21/2017 at 12:57
--- NOTE | 2017-03-21 14:01 | DRSVH ---
PROCEDURE: X-RAY ACUTE ABDOMINAL SERIES ([id number]) INDICATIONS: abd pain s/p surg no bms TECHNIQUE: One view chest and two views of the abdomen were acquired. COMPARISON: None. FINDINGS: Surgical changes and devices: Stimulator apparatus is seen overlying the left chest. Chest: There is mild elevation of the left diaphragm with probable mild scarring/atelectasis at the l eft lung base. Otherwise, the lungs are well aerated. Heart size is normal. No pleural effusions. No pneumoperitoneum. Abdomen: There is a large amount of stool identified within the colon. The right hemicolon is disten ded and air-filled with a very large multiple colonic bowel loops evident within the right lower quad rant. The small bowel loops do not appear to be significantly distended. Large amount of stool is s een within the colon. Visualized solid organ contours appear normal. Bones: No suspicious bony lesions. Degenerative changes of the imaged spine and hips are present. IMPRESSION: Markedly distended colon is at least suggestive of a colonic ileus with associated constipation. How ever, given the markedly distended loop of colon extending within the right abdomen, the possibility of sigmoid volvulus cannot be entirely excluded. A CT of the abdomen and pelvis with oral and intrav enous contrast is recommended for further evaluation. Dictated by: Jarvis Ramos M.D. on 03/21/2017 at 12:57 Approved by: Jarvis Ramos M.D. on 03/21/2017 at 12:59
[2017-03-21] MEDS ORDERED: Iohexol 300 mg/mL 30 mL Inj PO ONE (14:10)
--- NOTE | 2017-03-21 15:47 | DRSVH ---
PROCEDURE: CT ABDOMEN AND PELVIS WITH CONTRAST ([id number]) INDICATIONS: abd distension, oral contrast TECHNIQUE: After the administration of oral and intravenous contrast, 5 mm thick sections acquired from the diap hragms to the symphysis. 5 mm thick coronal and sagittal reformats were performed. For radiation do se reduction, the following was used: automated exposure control, adjustment of mA and/or kV accordi ng to patient size. COMPARISON: None. FINDINGS: Image quality: Excellent. ABDOMEN: Lung bases: Lung bases are clear. Heart size is normal. Solid organs: Liver and spleen are normal in size and enhancement. Gallbladder appears normal. Dash iary system is non-dilated. Pancreas enhances normally. No adrenal nodules. Kidneys are normal in size and enhancement, without hydronephrosis. Peritoneum and bowel: Stomach and small bowel loops are normal in caliber and wall thickness. The c olon is gas and stool distended, but no mass lesion or intussusception or volvulus is found. No free fluid or air. Nodes and vessels: No retroperitoneal or mesenteric adenopathy. Aorta and inferior vena cava are no rmal in caliber. Miscellaneous: No ventral hernias. PELVIS: Genitourinary: Bladder wall thickness is normal. Miscellaneous: No inguinal hernias or adenopathy. Bones: No suspicious bony lesions. No vertebral body compression fractures. IMPRESSION: Gas and stool distention of the colon, both on the right and left, and no volvulus or mas s is seen as the underlying cause. No intussusception or inflammatory process is found. Dictated by: Alexandro Malik M.D. on 03/21/2017 at 15:33 Approved by: Alexandro Malik M.D. on 03/21/2017 at 15:45
[2017-03-21 16:02] VITALS: BP 133/65; PULSE 72; RESP 19; O2SAT 98
== END 2017-03-21 16:21 | disposition home or self-care (01) ==
LOC: SED 11:46
DX: R50.9 Fever, unspecified (principal); K56.7 Ileus, unspecified; M25.511 Pain in right shoulder; K59.00 Constipation, unspecified; G20 Parkinson's disease; I10 Essential (primary) hypertension; M19.90 Unspecified osteoarthritis, unspecified site; Z87.828 Personal history of other (healed) physical injury and trauma; Z87.891 Personal history of nicotine dependence; Z79.82 Long term (current) use of aspirin
CPT/HCPCS: 36415; 73030; 74022; 74177; 80053; 81000; 83605; 83735; 84145; 85025; 86140; 87040; 93005; 96374; 99285; J1885; Q9967

== ENCOUNTER 2017-03-23 02:19 | Emergency (ER) | payer MEDICARE ==
[~2017-03-23] VITALS: Ht 185.4 cm; Wt 100.9 kg
[2017-03-23] VITALS (8 sets, daily range): BP systolic 88–126; BP diastolic 51–77; PULSE 63–102; RESP 11–16; O2SAT 93–99
--- NOTE | 2017-03-23 02:18 | ED.REPORT ---
HPI-Fever Date of Service Mar 23, 2017 ED Provider: Dr. Cunha Pt is a 71 year old male with a hx of Parkinson's and pacemaker presenting to the ED via EMS complaining of a fever of 100.8 onset 3 or 4 days ago. He had spinal stenosis L5 surgery last week. Pt was seen 2 days ago in the ED and his labs did not show any sign of infection. His took him off oxycodone because he was loopy, but he is in a lot of pain shooting down his legs. Denies abdominal pain, SOB, wheezing, nausea, vomiting, or diarrhea. Nursing Notes Stated Complaint: FEVER Chief Complaint: Fever Nursing Notes Reviewed: Yes Allergies: Coded Allergies: Shellfish (Verified Allergy, Unknown, anaphylaxis--all shellfish, 03/21/17) Scheduled Aspirin (Aspirin) 81 Mg Tablet 81 MG PO DAILY Atorvastatin (Lipitor) 20 Mg Tablet 20 MG PO DAILY Carbidopa/Levodopa 25-100 mg (Carbidopa/Levodopa 25-100 mg) 1 Each Tablet 1 TABLET PO QID Cholecalciferol (Vitamin D3) (Vitamin D3) 5,000 Unit Capsule 5,000 UNIT PO DAILY Clonazepam (Clonazepam) 0.5 Mg Tablet 0.5 MG PO HS Docusate Sodium (Colace) 100 Mg Capsule 100 MG PO DAILY Levothyroxine (Levothyroxine) 137 Mcg Tablet 137 MCG PO QAM Ropinirole (Ropinirole) 1 Mg Tablet 1 MG PO TID Sildenafil Citrate (Sildenafil) 20 Mg Tablet 20 MG PO DAILY Scheduled PRN Hydrocodone-Acetaminophen 5-325 mg (Hydrocodone-Acetaminophen 5-325 mg) 1 Each Tablet 1 TABLET PO Q6H PRN PRN For Pain General Time Seen by MD: 02:17 Chief Complaint Fever currently Hx Obtained From: Patient, EMS Arrived By: Ambulance Onset Occurred: 4 days ago Symptom Duration: Since onset Location: : Left lower extremity: Right lower extremity Quality: Painful Severity: Current: Moderate Severity: Maximum: Severe Recent Healthcare: No recent hospitalization, Recent doctor visit, Previous surgery Similar Sx Previous: No Past Medical History Past Medical History Parkinson's disease Hypertension Sleep apnea Hypothyroid Ataxia Arthritis Hx Ankle fracture Hx Dislocated shoulder Past Surgical History Deep brain neuro-stimulator placement for Parkinson's Interlaminar SHAYNE MCL repair Left TKA Spinal stenosis L5 surgery Smoking History Former Smoker Social History Other Social History: Good social support, Ambulatory Status Independent Review of Systems Constitutional: Reports: Fever Respiratory: Denies: Shortness of breath, Wheezing GI: Denies: Abdominal pain, Diarrhea, Nausea, Vomiting Complete sys rev & neg: except as marked. Physical Exam Initial Vital Signs Vital Signs (First) Date Time Temp Pulse Resp B/P Pulse Ox O2 Delivery O2 Flow Rate FiO2 03/23/17 02:22 38.0 102 16 103/52 93 Room Air Initial VS: Reviewed, Vital signs abnormal Head / Eyes: Atraumatic, Normocephalic, PERRL ENT: Mucous membranes moist, Conjunctiva normal, No scleral icterus Extremities: Vascular intact, Neuro intact, No swelling, No tenderness Psychiatric: Mood/affect normal, Behavior normal, Normal thought content General/Constitutional: Awake, Alert, No acute distress Henson catheter in place Neck: Atraumatic, Supple, No meningismus Respiratory / Chest: Breath sounds NL, Breath sounds = bilat, No respiratory distress, No rales, No rhonchi, No wheezing, No retractions, No stridor Cardiovascular: Heart rate NL, Regular rhythm, Heart sounds NL, No murmurs, Peripheral circulation NL Skin: No rash, Warm, Dry, Intact Incision site healing well, no erythema, drainage, dehiscence or associated tendernesss. Abdomen: No guarding, No rebound Ventral midline hernia distended. Interpretation & Diagnostics Lab Results Interpretation Result Diagram: 03/23/17 0215 03/23/17 0215 Test 03/23/17 02:15 03/23/17 03:05 03/23/17 03:45 White Blood Count 14.9th/mm3 (3.8-10.1) Red Blood Count 3.90mil/mm3 (4.40-5.80) Hemoglobin 12.2g/dL (13.8-17.2) Hematocrit 35.4% (41.0-50.0) Mean Corpuscular Volume 90.8fL (81-100) Mean Corpuscular Hemoglobin 31.3pg (27.0-35.0) Mean Corpuscular Hemoglobin Concent 34.5% (32.0-37.0) Red Cell Distribution Width 13.5% (12.3-15.4) Platelet Count 176bil/L (150-400) Neutrophils (%) (Auto) 85.9% (40-74) Lymphocytes (%) (Auto) 4.2% (14-46) Monocytes (%) (Auto) 9.2% (4-12) Eosinophils (%) (Auto) 0.3% (0-5) Basophils (%) (Auto) 0.1% (0-3) Sodium Level 133mEq/L (134-144) Potassium Level 4.5mEq/L (3.5-5.2) Chloride Level 94mEq/L (97-108) Carbon Dioxide Level 22mmol/L (18-29) Blood Urea Nitrogen 18mg/dL (8-27) Creatinine 1.01mg/dL (0.76-1.27) Estimat Glomerular Filtration Rate 78mL/min (>59) Glucose Level 168mg/dL (60-99) Calcium Level 9.1mg/dL (8.5-10.1) Magnesium Level 1.9mg/dL (1.6-2.6) Total Bilirubin 1.1mg/dL (0.0-1.2) Aspartate Amino Transf (AST/SGOT) 110U/L (0-50) Alanine Aminotransferase (ALT/SGPT) 7U/L (0-44) Alkaline Phosphatase 92U/L (25-160) Troponin T 0.010ug/L (0.0-0.011) Total Protein 6.9g/dL (6.4-8.4) Albumin 3.5g/dL (3.4-5.0) Lactic Acid Level 1.1mmol/L (0.4-2.0) Urine Color Yellow (YELLOW) Urine Appearance Hazy (CLEAR,HAZY) Urine pH 6.0 (5.0-8.0) Urine Specific Blevins 1.010 (1.003-1.035) Urine Protein Negativemg/dL (NEG,TRACE) Urine Glucose (UA) Negativemg/dL (NEGATIVE) Urine Ketones Negativemg/dL (NEGATIVE) Urine Occult Blood Moderate (NEGATIVE) Urine Nitrite Negative (NEGATIVE) Urine Bilirubin Negative (NEGATIVE) Urine Urobilinogen Normalmg/dL (NORMAL) Urine Leukocyte Esterase Trace (NEGATIVE) Urine RBC 3-10/hpf (0-2) Urine WBC 0-5/hpf (0-5) Urine Epithelial Cells Occasional/hpf (NONE-MOD) Urine Crystals None seen (NONE SEEN) Urine Bacteria Few/hpf (NONE-FEW) Urine Hyaline Casts None/lpf (NONE) Urine Granular Casts None seen (NONE SEEN) Urine Waxy Casts None seen (NONE SEEN) Urine Red Blood Cell Casts None seen (NONE SEEN) Urine White Blood Cell Casts None seen (NONE SEEN) Urine Mucus None seen (None Seen) Urine Trichomonas None seen (NONE SEEN) Urine Yeast None (NONE SEEN) Urinalysis Comment None Urine Culture Reflexed Indicated Lab Results Interpretation: White blood count, mildly elevated nonfasting glucose, normal lactate ECG Interpretation ECG Interpretation: Nonspecific T abnormalities, anterolateral leads. Time: 02:38 Interpreted by: ED physician Normal ECG Interpretation: Normal sinus rhythm X-Ray Chest Interpretation Chest Xray Interpretation: Lungs normal. Abdominal colonic gasseous distention. View: Portable, 1 view Interpretation / Wet Read by: Wet read ED physician CT Abd / Pelvis Interpretation CONCLUSION: Very dilated sigmoid colon related to a moderate rectosigmoid impaction. Large amount of fecal material in the ascending and transverse colon. This report was transmitted to the emergency room at 03/23/2017 - 4:57:50 AM PDT. Study type: Abdominal CT no contrast Interpretation / Wet Read by: Interpret - Radiologist Re-Eval/Medical Decision Med Decision/Clinical Course 71-year-old male who is one-week postop lumbar surgery presents with low-grade fever. He has some abdominal pain and distention. His history and physical otherwise show no source of infection. His white count is elevated at 14,900. Lactate is normal. Chest x-ray shows some gaseous abdominal distention but no pulmonary abnormality. Urine from his indwelling catheter shows red cells but no white cells. Blood cultures were obtained. He was given vancomycin and Zosyn. CT scan of his abdomen showed gross distention of the colon secondary to fecal impaction. He was given a fleets enema. His care is being turned over change of shift to Dr. Flores Re-Evaluation/Progress : Time of Eval: 05:06 Patient Status: Condition improved Re-Evaluation/Progress Note: Informed of CT results. Discussed plan for enema. Counseled Regarding: Diagnosis, Lab results, Need for follow-up, When/why to return to ED Discharge & Departure Shift Change Sign-Out Patient Care Transferred: Yes Discussed Complaint(s): Yes Laboratory Evaluation: Back, reviewed by me Imaging Studies: Imaging discussed Impression: Primary Impression: Fever Fever type: unspecified Qualified Code: R50.9 - Fever, unspecified Disposition: Home Discharge Condition All VS Reviewed: Yes Condition: Improved Referrals: Malcolm Rosario MD (PCP) Care Transferred to: Care transferred to Dr. Flores Care Transferred at: 06:00 Astrid Attestation Portions of this note were transcribed by Kristy Lopez. I, Dr. Cunha personally performed the history, physical exam and medical decision-making; I reviewed and confirmed the accuracy of the information in the transcribed note. Signed by: Astrid Mccarthy 03/23/2017. copies to: Malcolm Rosario MD, Howard L MD Mar 23, 2017 02:18 KRISTY LOPEZ Mar 23, 2017 02:24
[2017-03-23] MEDS ORDERED: 0.9% Sodium Chloride 1,000 ML IV ONE (02:26)
[2017-03-23 02:36] LABS: BASOPHILS % (AUTO) 0.1 % (0-3); EOSINOPHILS % (AUTO) 0.3 % (0-5); MONOCYTES % (AUTO) 9.2 % (4-12); Mean Corpuscular Hemoglobin 31.3 pg (27.0-35.0); Mean Corpuscular Volume 90.8 fL (81-100); NEUTROPHILS % (AUTO) 85.9 % (40-74); Platelet Count 176 bil/L (150-400)
[2017-03-23 02:57] LABS: TROPONIN T 0.01 ug/L (0.0-0.011)
[2017-03-23] MEDS ORDERED: Vancomycin Inj 2,000 MG in 0.9% Sodium Chloride 500 ML IV ONE (03:00)
[2017-03-23 03:09] LABS: Magnesium 1.9 mg/dL (1.6-2.6)
[2017-03-23 04:06] LABS: APPEARANCE,URINE HAZY (CLEAR,HAZY); COLOR,URINE YELLOW (YELLOW); OCCULT BLOOD,URINE MODERATE (NEGATIVE); UROBILINOGEN,URINE NORMAL (NORMAL)
[2017-03-23] MEDS ORDERED: Piperacillin-Tazo 3.375 Gm Inj 3.375 GM in Dextrose 5% Minibag Plus 50 ML IV ONE (05:40)
[2017-03-23] MEDS ORDERED: Vancomycin Dose per Pharmacist XX ONE (08:30)
--- NOTE | 2017-03-23 09:28 | DRSVH ---
PROCEDURE: X-RAY CHEST ONE VIEW, PORTABLE ([id number]) INDICATIONS: fever TECHNIQUE: One view of the chest was acquired. COMPARISON: [facility], CT, CT ABD PELVIS W CON, 03/23/2017, 4:36. [facility], [facility]R CHEST 1VW (PORTABLE), 09/27/2016, 18:21. FINDINGS: Surgical changes and devices: Neural stimulator pulse generator and lead again seen within the left c hest and neck. Lungs and pleura: No pleural effusions or pneumothorax. Lungs are clear. Mediastinum: Mediastinal contours appear normal. Heart size is normal. Bones and chest wall: No suspicious bony lesions. Overlying soft tissues appear unremarkable. Colonic distention again noted. IMPRESSION: 1. No acute cardiopulmonary disease. 2. Colonic distention as was noted on prior examinations. See report of recent CT scan for further f or further cross-sectional diagnostic evaluation. Dictated by: Jose G ANDRES Interpreted: Joycelyn Hay MD on 03/23/2017 at 8:22 Approved by: Joycelyn Hay M.D. on 03/23/2017 at 9:26
--- NOTE | 2017-03-23 10:05 | DRSVH ---
PROCEDURE: CT ABDOMEN AND PELVIS WITH CONTRAST ([id number]) INDICATIONS: abd pain, distention, fever, postop lumbar surgery TECHNIQUE: After the administration of intravenous contrast, 5 mm thick sections acquired from the diaphragm to the symphysis. 5 mm coronal and sagittal reformats were acquired. For radiation dose reduction, the following was used: automated exposure control, adjustment of mA and/or kV according to patient siz e. COMPARISON: [facility], CR, XR ABD ACUTE SERIES 3VW, 03/21/2017, 12:50. [facility], CT, ABD/PELVIS W/CON (PNL), 05/06/2010, 10:38. [facility], CT, ABD/PELVIS W/CO N (PNL), 05/01/2010, 8:50. [facility], CR, ABD ACUTE SERIES, 04/30/2010, 21:12. [facility], CT, CT ABD PELVIS W CON, 03/21/2017, 15:18. FINDINGS: Image quality: Excellent. ABDOMEN: Lung bases: Lung bases are clear. Heart size is normal. Atherosclerotic calcifications noted in the visualized coronary vasculature. Solid organs: Liver and spleen are normal in size and enhancement. Gallbladder is within normal fortune its. Biliary system is non dilated. Pancreas enhances normally. No adrenal nodules. Kidneys demon strate normal size and enhancement, without hydronephrosis. Right renal cyst is noted. Peritoneum and bowel: Stomach and small bowel loops demonstrate normal wall thickness and caliber. Th ere is gaseous distention of the colon. Large amount of stool noted in the right colon, sigmoid colon and rectum are stable compared to prior study obtained 03/21/17. No free fluid or air. Appendix is wi thin normal limits Nodes and vessels: No retroperitoneal or mesenteric adenopathy by size criteria. Aorta and inferior vena cava are normal in size. Scattered atherosclerotic calcifications involving the abdominal and p elvic vasculature. Miscellaneous: No ventral hernias. PELVIS: Genitourinary: Bladder is decompressed by the presence of a Henson catheter. Miscellaneous: Fat-containing inguinal hernia is noted. No adenopathy. Bones: No suspicious bony lesions. No vertebral body compression fractures. IMPRESSION: 1. Severe fecal loading involving the right colon, sigmoid colon and rectum as well as gaseous disten tion of the colon stable compared to 03/21/17 concerning for fecal impaction. 2. No free fluid or air. 3. No inflammatory changes. Dictated by: Shaina Higgins MD, PhD on 03/23/2017 at 9:55 Approved by: Shaina Higgins MD, PhD on 03/23/2017 at 10:03
--- NOTE | 2017-03-23 14:17 | NUR ---
Evaluation completed. Please go to "Notes" then click on "Assessments and Notes" (bottom left corner of screen). Then select appropriate discipline tab on top of screen.
== END 2017-03-23 16:23 | disposition home or self-care (01) ==
LOC: SED 02:19
DX: R50.9 Fever, unspecified (principal); K59.00 Constipation, unspecified; G89.18 Other acute postprocedural pain; D72.829 Elevated white blood cell count, unspecified; I10 Essential (primary) hypertension; E03.9 Hypothyroidism, unspecified; G20 Parkinson's disease; R33.9 Retention of urine, unspecified; Z46.6 Encounter for fitting and adjustment of urinary device; Z98.890 Other specified postprocedural states; Z79.82 Long term (current) use of aspirin; Z87.891 Personal history of nicotine dependence; Z95.0 Presence of cardiac pacemaker; Z91.013 Allergy to seafood
CPT/HCPCS: 36415; 51702; 51798; 71010; 74177; 80053; 81000; 82948; 83605; 83735; 84484; 85025; 87040; 87086; 93005; 96361; 96365; 96366; 96367; 97163; 99285; G8978; G8979; G8980; J2543; J3370; J7030; J7040; Q9967